=== PATIENT | female | born 1960 | race Caucasian/White ===

== ENCOUNTER 2024-06-10 18:36 | Inpatient (IN) | payer OTHER ==
--- NOTE | 2024-06-10 18:44 | ED ---
Fall HPI - General Stated Complaint: fall Time Seen by Provider: 06/10/24 18:41 Source: RN notes reviewed, old records reviewed Mode of arrival: EMS Limitations: no limitations - History of Present Illness Initial Comments: This is a 63-year-old female presenting by EMS for a fall fall with left-sided flank pain abdominal pain. Patient's fall was mechanical in nature states she had a trip and fall no headache chest pain shortness of breath is complaining of abdominal pain left-sided abdominal pain and flank pain. Patient states she has not seen a doctor in 20 years MD Complaint: fall -: hour(s) When Fall Occurred: 1-3 hours [place] [facility] Fall Witnessed: yes, by family Place Fall Occurred: home Loss of Consciousness: none Prolonged Down Time?: no Symptoms Prior to Fall: none Severity: moderate Severity scale (1-10): 6 Quality: sharp Context: tripped/slipped Associated Symptoms: denies - Related Data Home Medications Medication Instructions Recorded Confirmed Apple Cider Vinegar Gummies 2 tab PO HS 06/10/24 06/10/24 Elderberry Gummies 2 tab PO HS 06/10/24 06/10/24 Allergies Allergy/AdvReac Type Severity Reaction Status Date / Time lorazepam [From Ativan] AdvReac Confusion Verified 06/13/24 22:08 Review of Systems ROS Statement: Those systems with pertinent positive or pertinent negative responses have been documented in the HPI. ROS Other: All systems not noted in ROS Statement are negative. General Exam General appearance: alert, in no apparent distress Head exam: Present: atraumatic, normocephalic, normal inspection Eye exam: Present: normal appearance, PERRL, EOMI. Absent: scleral icterus, conjunctival injection, periorbital swelling ENT exam: Present: normal exam, mucous membranes moist Neck exam: Present: normal inspection. Absent: tenderness, meningismus, lymphadenopathy Respiratory exam: Present: normal lung sounds bilaterally. Absent: respiratory distress, wheezes, rales, rhonchi, stridor Cardiovascular Exam: Present: regular rate, normal rhythm, normal heart sounds. Absent: systolic murmur, diastolic murmur, rubs, gallop, clicks GI/Abdominal exam: Present: soft, normal bowel sounds. Absent: distended, tenderness, guarding, rebound, rigid Extremities exam: Present: normal inspection, full ROM, normal capillary refill. Absent: tenderness, pedal edema, joint swelling, calf tenderness Back exam: Present: normal inspection Neurological exam: Present: alert, oriented X3, CN II-XII intact Psychiatric exam: Present: normal affect, normal mood Skin exam: Present: warm, dry, intact, normal color. Absent: rash Course Vital Signs 06/10/24 06/10/24 06/10/24 18:42 18:58 20:33 Temperature 98.3 F Pulse Rate 101 H 98 Pulse Rate [ 105 H Telesales Supervisor ] Respiratory 16 18 Rate Blood Pressure 215/121 190/79 O2 Sat by Pulse 99 99 Oximetry 06/10/24 06/10/24 06/11/24 22:15 23:00 00:46 Temperature Pulse Rate 90 83 95 Pulse Rate [ Telesales Supervisor ] Respiratory 16 16 18 Rate Blood Pressure 195/97 187/102 118/68 O2 Sat by Pulse 99 97 99 Oximetry 06/11/24 06/11/24 06/11/24 04:29 08:29 11:56 Temperature Pulse Rate 90 95 Pulse Rate [ Telesales Supervisor ] Respiratory 20 20 Rate Blood Pressure 164/79 168/81 164/74 O2 Sat by Pulse 98 97 Oximetry 06/11/24 06/11/24 06/11/24 14:26 16:57 18:28 Temperature 98.2 F Pulse Rate 89 93 98 Pulse Rate [ Telesales Supervisor ] Respiratory 20 19 22 Rate Blood Pressure 176/92 188/95 168/84 O2 Sat by Pulse 99 98 99 Oximetry - Reevaluation(s) Reevaluation #1: 06/10/24 21:31 Medical records reviewed Reevaluation #2: 06/10/24 21:31 Patient's pain is controlled Reevaluation #3: 06/10/24 21:31 Patient informed of results questions answered Reevaluation #4: Was pt. sent in by a medical professional or institution (, PA, JOB SETTER, urgent care, hospital, or long term...) When possible be specific @ -no Did you speak to anyone other than the patient for history (EMS, parent, family, police, friend...)? What history was obtained from this source @ -no Did you review nursing and triage notes (agree or disagree)? Why? @ -agree Are old charts reviewed (outside hosp., previous admission, EMS record, old EKG, old radiological studies, urgent care reports/EKG's, long term records)? Report findings @ -yes Differential Diagnosis (chest pain, altered mental status, abdominal pain women, abdominal pain men, vaginal bleeding, weakness, fever, dyspnea, syncope, headache, dizziness, GI bleed, back pain, seizure, CVA, palpatations, mental health, musculoskeletal)? @ -prior EKG interpreted by me (3pts min.). @ -yes X-rays interpreted by me (1pt min.). @ -yes negative for acute disease CT interpreted by me (1pt min.). @ -US negative for acute disease U/S interpreted by me (1pt. min.). @ -no What testing was considered but not performed or refused? (CT, X-rays, U/S, labs)? Why? @ -none What meds were considered but not given or refused? Why? @ -none Did you discuss the management of the patient with other professionals (professionals i.e. , PA, JOB SETTER, lab, RT, psych nurse, social media assistant, fan runner, teacher, sustainability officer, block and case maker)? Give summary @ -no Was smoking cessation discussed for >3mins.? @ -no Was critical care preformed (if so, how long)? @ -no Were there social determinants of health that impacted care today? How? (Homelessness, low income, unemployed, alcoholism, drug addiction, transportation, low edu. Level, literacy, decrease access to med. care, fpc, rehab)? @ -none Was there de-escalation of care discussed even if they declined (Discuss DNR or withdrawal of care, Hospice)? DNR status @ -no What co-morbidities impacted this encounter? (DM, HTN, Smoking, COPD, CAD, Cancer, CVA, ARF, Chemo, Hep., AIDS, mental health diagnosis, sleep apnea, morbid obesity)? @ -none Was patient admitted / discharged? Hospital course, mention meds given and route, prescriptions, significant lab abnormalities, going to OR and other pertinent info. @ - 63 female to the ER after a fall complaining of left side left flank pain. Patient has no significant traumatic injury noted low magnesium low potassium patient has not seen a doctor in 20 years has new diagnosis of diabetes and severe uncontrolled hypertension with hypertensive urgency Admitted Undiagnosed new problem with uncertain prognosis? @ -no Drug Therapy requiring intensive monitoring for toxicity (Heparin, Nitro, Insulin, Cardizem)? @ -no Were any procedures done? @ -no Diagnosis/symptom? @ -Uncontrolled diabetes new diabetes and hypertension, low magnesium, low potassium, Acute, or Chronic, or Acute on Chronic? @ -Acute Uncomplicated (without systemic symptoms) or Complicated (systemic symptoms)? @ -Complicated Side effects of treatment? @ -no Exacerbation, Progression, or Severe Exacerbation? @ -exacerbation Poses a threat to life or bodily function? How? (Chest pain, USA, HI, pneumonia, PE, COPD, DKA, ARF, appy, cholecystitis, CVA, Diverticulitis, Homicidal, Suicidal, threat to staff... and all critical care pts) @ -yes severe elevated blood pressure Reevaluation #5: Differential Weakness: Hypoglycemia, shock, sepsis, hyponatremia, anemia, infection, HI, ETOH, adverse medicine reaction, overdose, stroke, this is not meant to be an all-inclusive list. - Consultations Consultation #1: Spoke with [facility] who agrees to admit this patient Medical Decision Making - Medical Decision Making 63 female to the ER after a fall complaining of left side left flank pain. Patient has no significant traumatic injury noted low magnesium low potassium patient has not seen a doctor in 20 years has new diagnosis of diabetes and severe uncontrolled hypertension with hypertensive urgency - Lab Data Result diagrams: 06/17/24 06:12 06/17/24 06:12 Lab Results 06/10/24 06/10/24 06/10/24 Range/Units 18:50 20:14 20:14 WBC 10.93 H (4.50-10.00) 10*3/uL RBC 5.58 H (4.10-5.20) 10*6/uL Hgb 15.8 H (12.0-15.0) g/dL Hct 45.5 (37.2-46.3) % MCV 81.5 (80.0-97.0) fL MCH 28.3 (27.0-32.0) pg MCHC 34.7 (32.0-37.0) g/dL Plt Count 309 (140-440) 10*3/uL MPV 10.0 (9.5-12.2) fL Immature Gran % (Auto) 0.3 % Neutrophils % 77.9 % Lymphocytes % 15.2 % Monocytes % 5.3 % Eosinophils % 0.5 % Basophils % 0.8 % Immature Gran # 0.03 (0.00-0.04) 10*3/uL Neutrophils # 8.51 H (1.80-7.70) 10*3/uL Lymphocytes # 1.66 (0.90-5.00) 10*3/uL Monocytes # 0.58 (0.20-1.00) 10*3/uL Eosinophils # 0.06 (0.04-0.35) 10*3/uL Basophils # 0.09 (0.00-0.10) 10*3/uL PT 10.2 (10.0-12.5) sec INR 0.9 (<1.2) APTT 22.1 (22.0-30.0) sec D-Dimer 0.36 (<0.60) mg/L FEU Sodium (137-145) mmol/L Potassium (3.5-5.1) mmol/L Chloride (98-107) mmol/L Carbon Dioxide (22-30) mmol/L Anion Gap mmol/L BUN (7-17) mg/dL Creatinine (0.52-1.04) mg/dL Est GFR (CKD-EPI)AfAm (>60 ml/min/1.73 sqM) Est GFR (CKD-EPI)NonAf (>60 ml/min/1.73 sqM) Glucose (74-99) mg/dL POC Glucose (mg/dL) 412 H (70-110) mg/dL POC Glu Nickel Plant Operator ID [place] Plasma Lactic Acid Daniel (0.7-2.0) mmol/L Calcium (8.4-10.2) mg/dL Phosphorus (2.5-4.5) mg/dL Magnesium (1.6-2.3) mg/dL Total Bilirubin (0.2-1.3) mg/dL AST (14-36) U/L ALT (4-34) U/L Alkaline Phosphatase (38-126) U/L Troponin I (0.000-0.034) ng/mL NT-Pro-B Natriuret Pep pg/mL Total Protein (6.3-8.2) g/dL Albumin (3.5-5.0) g/dL Urine Color Urine Appearance (Clear) Urine pH (5.0-8.0) Ur Specific [place] (1.001-1.035) Urine Protein (Negative) Urine Glucose (UA) (Negative) Urine Ketones (Negative) Urine Blood (Negative) Urine Nitrite (Negative) Urine Bilirubin (Negative) Urine Urobilinogen (<2.0) mg/dL Ur Leukocyte Esterase (Negative) Urine RBC (0-5) /hpf Urine WBC (0-5) /hpf Ur Squamous Epith Cells (0-4) /hpf Urine Bacteria (None) /hpf Urine Mucus (None) /hpf 06/10/24 06/10/24 06/10/24 Range/Units 20:14 20:14 20:14 WBC (4.50-10.00) 10*3/uL RBC (4.10-5.20) 10*6/uL Hgb (12.0-15.0) g/dL Hct (37.2-46.3) % MCV (80.0-97.0) fL MCH (27.0-32.0) pg MCHC (32.0-37.0) g/dL Plt Count (140-440) 10*3/uL MPV (9.5-12.2) fL Immature Gran % (Auto) % Neutrophils % % Lymphocytes % % Monocytes % % Eosinophils % % Basophils % % Immature Gran # (0.00-0.04) 10*3/uL Neutrophils # (1.80-7.70) 10*3/uL Lymphocytes # (0.90-5.00) 10*3/uL Monocytes # (0.20-1.00) 10*3/uL Eosinophils # (0.04-0.35) 10*3/uL Basophils # (0.00-0.10) 10*3/uL PT (10.0-12.5) sec INR (<1.2) APTT (22.0-30.0) sec D-Dimer (<0.60) mg/L FEU Sodium 135 L (137-145) mmol/L Potassium 3.1 L (3.5-5.1) mmol/L Chloride 103 (98-107) mmol/L Carbon Dioxide 23 (22-30) mmol/L Anion Gap 9 mmol/L BUN 18 H (7-17) mg/dL Creatinine 0.42 L (0.52-1.04) mg/dL Est GFR (CKD-EPI)AfAm >90 (>60 ml/min/1.73 sqM) Est GFR (CKD-EPI)NonAf >90 (>60 ml/min/1.73 sqM) Glucose 332 H (74-99) mg/dL POC Glucose (mg/dL) (70-110) mg/dL POC Glu Nickel Plant Operator ID Plasma Lactic Acid Daniel 1.3 (0.7-2.0) mmol/L Calcium 8.0 L (8.4-10.2) mg/dL Phosphorus 3.1 (2.5-4.5) mg/dL Magnesium 1.4 L (1.6-2.3) mg/dL Total Bilirubin 0.7 (0.2-1.3) mg/dL AST 18 (14-36) U/L ALT 15 (4-34) U/L Alkaline Phosphatase 87 (38-126) U/L Troponin I <0.012 (0.000-0.034) ng/mL NT-Pro-B Natriuret Pep 412 pg/mL Total Protein 6.2 L (6.3-8.2) g/dL Albumin 3.4 L (3.5-5.0) g/dL Urine Color Urine Appearance (Clear) Urine pH (5.0-8.0) Ur Specific [place] (1.001-1.035) Urine Protein (Negative) Urine Glucose (UA) (Negative) Urine Ketones (Negative) Urine Blood (Negative) Urine Nitrite (Negative) Urine Bilirubin (Negative) Urine Urobilinogen (<2.0) mg/dL Ur Leukocyte Esterase (Negative) Urine RBC (0-5) /hpf Urine WBC (0-5) /hpf Ur Squamous Epith Cells (0-4) /hpf Urine Bacteria (None) /hpf Urine Mucus (None) /hpf 06/10/24 Range/Units 20:22 WBC (4.50-10.00) 10*3/uL RBC (4.10-5.20) 10*6/uL Hgb (12.0-15.0) g/dL Hct (37.2-46.3) % MCV (80.0-97.0) fL MCH (27.0-32.0) pg MCHC (32.0-37.0) g/dL Plt Count (140-440) 10*3/uL MPV (9.5-12.2) fL Immature Gran % (Auto) % Neutrophils % % Lymphocytes % % Monocytes % % Eosinophils % % Basophils % % Immature Gran # (0.00-0.04) 10*3/uL Neutrophils # (1.80-7.70) 10*3/uL Lymphocytes # (0.90-5.00) 10*3/uL Monocytes # (0.20-1.00) 10*3/uL Eosinophils # (0.04-0.35) 10*3/uL Basophils # (0.00-0.10) 10*3/uL PT (10.0-12.5) sec INR (<1.2) APTT (22.0-30.0) sec D-Dimer (<0.60) mg/L FEU Sodium (137-145) mmol/L Potassium (3.5-5.1) mmol/L Chloride (98-107) mmol/L Carbon Dioxide (22-30) mmol/L Anion Gap mmol/L BUN (7-17) mg/dL Creatinine (0.52-1.04) mg/dL Est GFR (CKD-EPI)AfAm (>60 ml/min/1.73 sqM) Est GFR (CKD-EPI)NonAf (>60 ml/min/1.73 sqM) Glucose (74-99) mg/dL POC Glucose (mg/dL) (70-110) mg/dL POC Glu Nickel Plant Operator ID Plasma Lactic Acid Daniel (0.7-2.0) mmol/L Calcium (8.4-10.2) mg/dL Phosphorus (2.5-4.5) mg/dL Magnesium (1.6-2.3) mg/dL Total Bilirubin (0.2-1.3) mg/dL AST (14-36) U/L ALT (4-34) U/L Alkaline Phosphatase (38-126) U/L Troponin I (0.000-0.034) ng/mL NT-Pro-B Natriuret Pep pg/mL Total Protein (6.3-8.2) g/dL Albumin (3.5-5.0) g/dL Urine Color Colorless Urine Appearance Clear (Clear) Urine pH 5.0 (5.0-8.0) Ur Specific [place] 1.038 H (1.001-1.035) Urine Protein Negative (Negative) Urine Glucose (UA) 4+ H (Negative) Urine Ketones 2+ H (Negative) Urine Blood Negative (Negative) Urine Nitrite Negative (Negative) Urine Bilirubin Negative (Negative) Urine Urobilinogen <2.0 (<2.0) mg/dL Ur Leukocyte Esterase Moderate H (Negative) Urine RBC 6 H (0-5) /hpf Urine WBC 7 H (0-5) /hpf Ur Squamous Epith Cells 2 (0-4) /hpf Urine Bacteria Rare H (None) /hpf Urine Mucus Rare H (None) /hpf - EKG Data -: EKG Interpreted by Me (EKG is sinus 93 NH 186 QRS 81 QTc 450) - Radiology Data Radiology results: report reviewed (X-ray chest x-ray pelvis possible acetabular, CT abdomen pelvis and hip negative for traumatic injury), image reviewed Disposition Clinical Impression: Fall, Abdominal pain, New onset type 2 diabetes mellitus, Hypertension, Hypomagnesemia, Hypokalemia Disposition: ADMITTED IP TO THIS HOSP Condition: Fair Is patient prescribed a controlled substance at d/c from ED?: No Time of Disposition: 21:30
[2024-06-10 18:52] LABS: Glucose,Whole Blood 412 mg/dL (70-110)
--- NOTE | 2024-06-10 20:05 | XR ---
EXAMINATION TYPE: XR chest 2V DATE OF EXAM: 06/10/2024 7:48 PM COMPARISON: None CLINICAL INDICATION: Female, 63 years old with history of Weakness; TECHNIQUE: XR chest 2V Frontal and lateral views of the chest. FINDINGS: Lungs/Pleura: There is no evidence of pleural effusion, focal consolidation, or pneumothorax. Pulmonary vascularity: Unremarkable. Heart/mediastinum: Cardiomediastinal silhouette is unremarkable. Musculoskeletal: No acute osseous pathology. IMPRESSION: No acute cardiopulmonary disease/process. [facility], , 06/10/2024 8:02 PM
--- NOTE | 2024-06-10 20:09 | XR ---
EXAMINATION TYPE: XR Hip LT and AP Pelvis DATE OF EXAM: 06/10/2024 7:48 PM COMPARISON: None CLINICAL INDICATION: Female, 63 years old with history of pain; TECHNIQUE: XR Hip LT and AP Pelvis; hip was examined in the frontal and lateral projections and a AP pelvis. FINDINGS: Possible fracture line to the acetabulum seen on one view only. There is severe joint space narrowing and osteophyte formation of the left hip and mild to moderate osteophyte formation and kiko nt space narrowing of the right hip. Additional fractures definitively visualized. IMPRESSION: 1. There is possible left acetabular fracture seen on view only. Further evaluation with CT recommen ded. 2. Moderate to severe left hip and mild to moderate right hip osteoporosis. [facility], , 06/10/2024 8:06 PM
[2024-06-10 20:23] LABS: Basophils # (A) 0.09 10*3/uL (0.00-0.10); Basophils % (A) 0.8 %; Eosinophils # (A) 0.06 10*3/uL (0.04-0.35); Eosinophils % (A) 0.5 %; HCT 45.5 % (37.2-46.3); HGB 15.8 g/dL (12.0-15.0); Lymphocytes # (A) 1.66 10*3/uL (0.90-5.00); Lymphocytes % (A) 15.2 %; MCH 28.3 pg (27.0-32.0); MCHC 34.7 g/dL (32.0-37.0); MCV 81.5 fL (80.0-97.0); Monocytes # (A) 0.58 10*3/uL (0.20-1.00); Monocytes % (A) 5.3 %; Neutrophils # (A) 8.51 10*3/uL (1.80-7.70); Neutrophils % (A) 77.9 %; Platelet Count 309 10*3/uL (140-440); RBC 5.58 10*6/uL (4.10-5.20); RDW 12.3 % (11.5-14.5); WBC 10.93 10*3/uL (4.50-10.00)
[2024-06-10] MEDS: SODIUM CHLORIDE 0.9% 1,000 ML IV ONE ×2 (20:31→22:25)
[2024-06-10] MEDS: MORPHINE SULFATE 4 MG/ML SYRINGE IV STA (20:35)
[2024-06-10 20:37] LABS: Appearance,Urine Clear (Clear); Bacteria,Urine Rare /hpf; Bilirubin,Urine Negative (Negative); Blood,Urine Negative (Negative); Color,Urine Colorless; Glucose,Urine (UA) 4+ (Negative); Leukocyte Esterase,Urine Moderate (Negative); Mucus,Urine Rare /hpf; Nitrite,Urine Negative (Negative); Protein,Urine Negative (Negative); RBC,Urine 6 /hpf (0-5); Specific Gravity,Urine 1.038 (1.001-1.035); Squamous Epithelial Cell,Urine 2 /hpf (0-4); Urobilinogen,Urine <2.0 mg/dL (<2.0); WBC,Urine 7 /hpf (0-5)
[2024-06-10 20:39] LABS: ALT 15 U/L (4-34); AST 18 U/L (14-36); African American GFR (CKD) >90 (>60 ml/min/1.73 sqM); Albumin 3.4 g/dL (3.5-5.0); Alkaline Phosphatase 87 U/L (38-126); Anion Gap 9 mmol/L; Blood Urea Nitrogen 18 mg/dL (7-17); Carbon Dioxide 23 mmol/L (22-30); Chloride 103 mmol/L (98-107); Glucose 332 mg/dL (74-99); Magnesium 1.4 mg/dL (1.6-2.3); Non-African American GFR(CKD) >90 (>60 ml/min/1.73 sqM); Phosphorus 3.1 mg/dL (2.5-4.5); Potassium 3.1 mmol/L (3.5-5.1); Sodium 135 mmol/L (137-145); Total Bilirubin 0.7 mg/dL (0.2-1.3); Total Protein 6.2 g/dL (6.3-8.2)
[2024-06-10 20:40] LABS: Ketones,Urine 2+ (Negative)
[2024-06-10 20:41] LABS: INR 0.9 (<1.2); Partial Thromboplastin Time 22.1 sec (22.0-30.0); Prothrombin Time 10.2 sec (10.0-12.5)
[2024-06-10 20:47] LABS: NT-Pro-B-Type Natriuretic Pept 412 pg/mL
[2024-06-10] MEDS ORDERED: NALOXONE 0.4 MG/ML 1 ML VIAL IV PRN (21:26)
[2024-06-10] MEDS ORDERED: MORPHINE SULFATE 4 MG/ML SYRINGE IV PRN (21:26)
[2024-06-10] MEDS: POTASSIUM BICARBONATE/CIT AC 20 MEQ TABLET.EFF PO ONE ×2 (22:24→22:38)
[2024-06-10] MEDS: MAGNESIUM OXIDE 400 MG TAB PO STA (22:24)
[2024-06-10] MEDS: LABETALOL 5 MG/ML VIAL MDV IVP STA (22:25)
[2024-06-10] MEDS: SODIUM CHLORIDE 0.9% 500 ML 500 ML IV ONE (22:26)
[2024-06-10] MEDS: MAGNESIUM SULFATE-D5W PMX 1 GM in DEXTROSE/WATER 1 100ML.BAG IVPB ONE (22:26)
[2024-06-10] MEDS: SODIUM CHLORIDE 0.9% 1,000 ML IV SCH (22:26)
[2024-06-10] MEDS: INSULIN REGULAR 100 UNIT/ML VIAL (IV) IV ONE (22:29)
[2024-06-10] MEDS: MAGNESIUM OXIDE 400 MG TAB PO SCH (22:38)
--- NOTE | 2024-06-10 22:42 | CT ---
EXAMINATION TYPE: CT abdomen pelvis w con, CT hip LT w con DATE OF EXAM: 06/10/2024 10:17 PM COMPARISON: Plain films. CLINICAL INDICATION: Female, 63 years old with history of pain; fall, hip pain TECHNIQUE: Axial CT abdomen pelvis w con, CT hip LT w con;Sagittal and coronal reformats were create d on a separate workstation. Contrast used:100 ml mL of Isovue 300 with IV Contrast, (none if empty) Oral contrast used: without Oral Contrast (none if empty) CT DLP: 2616.4 mGycm, Automated exposure control for dose reduction was used. FINDINGS: LOWER CHEST: Heart is mildly enlarged for size. ABDOMEN LIVER: Unremarkable GALLBLADDER AND BILE DUCTS: Unremarkable. PANCREAS: Unremarkable. SPLEEN: Unremarkable. ADRENAL GLANDS: Left adrenal septic millimeter nodule measuring 25 Hounsfield units. No right adrenal nodules. KIDNEYS AND URETERS: No evidence of hydronephrosis or obstructing renal calculus. The ureters are unr emarkable. Nonobstructing right renal metastatic focus. No left renal calculi. No hydronephrosis. PELVIS BLADDER: No evidence for wall thickening or mass given limitations of exam. REPRODUCTIVE: Unremarkable. ABDOMEN & PELVIS STOMACH AND BOWEL: Small hiatal hernia. No evidence of bowel obstruction. Scattered colonic diverticu la. The appendix is normal. PERITONEUM/RETROPERITONEUM: No evidence of pneumoperitoneum or free fluid. VASCULATURE: No evidence of aortic aneurysm. MUSCULOSKELETAL: No acute osseous abnormalities, moderate to severe degeneration changes of the left hip with osteophyte formation and joint space narrowing. No evidence of fracture. Mild to moderate ri ght hip osteoporosis with osteophyte information joint space narrowing. Mild to moderate degeneration changes spine worse at L4-L5. No evidence for spinal fracture. LYMPH NODES: No gross evidence for lymphadenopathy. SOFT TISSUE/ABDOMINAL WALL: Fat-containing umbilical hernia. Diastasis of the rectus abdominis muscle . IMPRESSION: 1. Moderate to severe degeneration changes of the hips. No evidence of fracture. If there remains co ncern for fracture consider MRI. 2. Colonic diverticulosis. 3. Nonobstructing right renal calculus. 4. Mild cardiomegaly. 5. Small hiatal hernia. 6. Indeterminate left adrenal nodule consider further evaluation. Adrenal mass protocol. [facility], , 06/10/2024 10:39 PM
[2024-06-10 23:33] LABS: Glucose,Whole Blood 274 mg/dL (70-110)
[2024-06-11 02:50] LABS: Glucose,Whole Blood 297 mg/dL (70-110)
[2024-06-11 03:38] LABS: Basophils # (A) 0.05 10*3/uL (0.00-0.10); Basophils % (A) 0.5 %; Eosinophils # (A) 0.09 10*3/uL (0.04-0.35); HCT 42.1 % (37.2-46.3); HGB 14.1 g/dL (12.0-15.0); Lymphocytes # (A) 2.04 10*3/uL (0.90-5.00); Lymphocytes % (A) 21.9 %; MCHC 33.5 g/dL (32.0-37.0); MCV 83.7 fL (80.0-97.0); Mean Platelet Volume 10.2 fL (9.5-12.2); Monocytes # (A) 0.58 10*3/uL (0.20-1.00); Monocytes % (A) 6.2 %; Neutrophils # (A) 6.54 10*3/uL (1.80-7.70); Neutrophils % (A) 70.1 %; Platelet Count 310 10*3/uL (140-440); RBC 5.03 10*6/uL (4.10-5.20); RDW 12.5 % (11.5-14.5); WBC 9.33 10*3/uL (4.50-10.00)
[2024-06-11 03:57] LABS: ALT 16 U/L (4-34); AST 17 U/L (14-36); African American GFR (CKD) >90 (>60 ml/min/1.73 sqM); Albumin 3.4 g/dL (3.5-5.0); Alkaline Phosphatase 95 U/L (38-126); Anion Gap 9 mmol/L; Blood Urea Nitrogen 15 mg/dL (7-17); Calcium 8.4 mg/dL (8.4-10.2); Carbon Dioxide 25 mmol/L (22-30); Chloride 99 mmol/L (98-107); Glucose 306 mg/dL (74-99); Magnesium 1.8 mg/dL (1.6-2.3); Non-African American GFR(CKD) >90 (>60 ml/min/1.73 sqM); Phosphorus 2.3 mg/dL (2.5-4.5); Sodium 133 mmol/L (137-145); Total Bilirubin 0.4 mg/dL (0.2-1.3); Total Protein 6.2 g/dL (6.3-8.2)
[2024-06-11] MEDS ORDERED: DEXTROSE 50% SYRINGE 50 ML IVP PRN ×2 (04:01)
[2024-06-11 04:33] LABS: Glucose,Whole Blood 324 mg/dL (70-110)
[2024-06-11] MEDS: INSULIN LISPRO (HumaLOG) 100 UNIT/ML 10 mL VL SQ SCH (04:38)
[2024-06-11 06:02] LABS: Glucose,Whole Blood 323 mg/dL (70-110)
[2024-06-11 08:32] LABS: Glucose,Whole Blood 233 mg/dL (70-110)
[2024-06-11 12:15] LABS: Glucose,Whole Blood 358 mg/dL (70-110)
[2024-06-11] MEDS ORDERED: PIOGLITAZONE 30 MG TAB PO SCH (12:45)
--- NOTE | 2024-06-11 12:51 | P.HPIM ---
History of Present Illness 63-year-old female came in after a fall patient had a mechanical fall patient underwent workup with CT abdomen pelvis hip CT pelvic and hip x-ray all of which did not show any significant abdominal patient had abdominal pain when she came in patient presently denies any abdominal pain patient is also found to have highly elevated blood sugars. Patient is not a known diabetic. Patient blood pressure is also elevated. 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 Nonobstructing renal calculi, colonic diverticulosis. And there is a incidental finding of left adrenal nodule. REVIEW OF SYSTEMS: All other systems are negative except those mentioned in the HPI PHYSICAL EXAMINATION: GENERAL: The patient is alert and oriented x3, not in any acute distress. Well developed, well nourished. HEENT: Pupils are round and equally reacting to light. EOMI. No scleral icterus. No conjunctival pallor. Normocephalic, atraumatic. No pharyngeal erythema. No thyromegaly. CARDIOVASCULAR: S1 and S2 present. No murmurs, rubs, or gallops. PULMONARY: Chest is clear to auscultation, no wheezing or crackles. ABDOMEN: Soft, nontender, nondistended, normoactive bowel sounds. No palpable organomegaly. MUSCULOSKELETAL: No joint swelling or deformity. EXTREMITIES: No cyanosis, clubbing, or pedal edema. NEUROLOGICAL: Gross neurological examination did not reveal any focal deficits. SKIN: No rashes. Assessment and plan -Fall secondary to generalized weakness patient does have peripheral neuropathy from probably from diabetes mellitus which is contributing to her weakness and falls. Physical therapy Occupational Therapy evaluation. - Type 2 diabetes mellitus new onset patient will be started on sliding scale insulin along with metformin and linagliptin. Will obtain hemoglobin A1c - Hypertension new onset essential hypertension patient will be started on losartan 25 mg DVT prophylaxis: Early ambulation Past Medical History Additional Past Medical History / Comment(s): kidney stones Past Surgical History: Back Surgery Additional Past Surgical History / Comment(s): ruptured disc Past Psychological History: No Psychological Hx Reported Smoking Status: Current every day smoker Past Alcohol Use History: None Reported Past Drug Use History: None Reported Medications and Allergies Home Medications Medication Instructions Recorded Confirmed Type Apple Cider Vinegar Gummies 2 tab PO HS 06/10/24 06/10/24 History Elderberry Gummies 2 tab PO HS 06/10/24 06/10/24 History Allergies Allergy/AdvReac Type Severity Reaction Status Date / Time No Known Allergies Allergy Verified 06/10/24 18:47 Physical Exam Vitals: Vital Signs Temp Pulse Pulse Resp BP Pulse Ox 06/11/24 11:56 95 20 164/74 97 06/11/24 08:29 90 20 168/81 98 06/11/24 04:29 164/79 06/11/24 00:46 95 18 118/68 99 06/10/24 23:00 83 16 187/102 97 06/10/24 22:15 90 16 195/97 99 06/10/24 20:33 98 18 190/79 99 06/10/24 18:58 105 H 06/10/24 18:42 98.3 F 101 H 16 215/121 99 Intake and Output 06/10/24 06/11/24 06/11/24 22:59 06:59 14:59 Output Total 800 Balance -800 Output: Urine 800 Other: Weight 81.647 kg Results CBC & Chem 7: 06/11/24 03:07 06/11/24 03:07 Labs: Abnormal Lab Results - Last 24 Hours (Table) 06/10/24 06/10/24 06/10/24 Range/Units 18:50 20:14 20:14 WBC 10.93 H (4.50-10.00) 10*3/uL RBC 5.58 H (4.10-5.20) 10*6/uL Hgb 15.8 H (12.0-15.0) g/dL Neutrophils # 8.51 H (1.80-7.70) 10*3/uL Sodium 135 L (137-145) mmol/L Potassium 3.1 L (3.5-5.1) mmol/L BUN 18 H (7-17) mg/dL Creatinine 0.42 L (0.52-1.04) mg/dL Glucose 332 H (74-99) mg/dL POC Glucose (mg/dL) 412 H (70-110) mg/dL Hemoglobin A1c (<=6.0) % Calcium 8.0 L (8.4-10.2) mg/dL Phosphorus (2.5-4.5) mg/dL Magnesium 1.4 L (1.6-2.3) mg/dL Total Protein 6.2 L (6.3-8.2) g/dL Albumin 3.4 L (3.5-5.0) g/dL Ur Specific [place] (1.001-1.035) Urine Glucose (UA) (Negative) Urine Ketones (Negative) Ur Leukocyte Esterase (Negative) Urine RBC (0-5) /hpf Urine WBC (0-5) /hpf Urine Bacteria (None) /hpf Urine Mucus (None) /hpf 06/10/24 06/10/24 06/11/24 Range/Units 20:22 23:30 02:48 WBC (4.50-10.00) 10*3/uL RBC (4.10-5.20) 10*6/uL Hgb (12.0-15.0) g/dL Neutrophils # (1.80-7.70) 10*3/uL Sodium (137-145) mmol/L Potassium (3.5-5.1) mmol/L BUN (7-17) mg/dL Creatinine (0.52-1.04) mg/dL Glucose (74-99) mg/dL POC Glucose (mg/dL) 274 H 297 H (70-110) mg/dL Hemoglobin A1c (<=6.0) % Calcium (8.4-10.2) mg/dL Phosphorus (2.5-4.5) mg/dL Magnesium (1.6-2.3) mg/dL Total Protein (6.3-8.2) g/dL Albumin (3.5-5.0) g/dL Ur Specific [place] 1.038 H (1.001-1.035) Urine Glucose (UA) 4+ H (Negative) Urine Ketones 2+ H (Negative) Ur Leukocyte Esterase Moderate H (Negative) Urine RBC 6 H (0-5) /hpf Urine WBC 7 H (0-5) /hpf Urine Bacteria Rare H (None) /hpf Urine Mucus Rare H (None) /hpf 06/11/24 06/11/24 06/11/24 Range/Units 03:07 03:07 04:31 WBC (4.50-10.00) 10*3/uL RBC (4.10-5.20) 10*6/uL Hgb (12.0-15.0) g/dL Neutrophils # (1.80-7.70) 10*3/uL Sodium 133 L (137-145) mmol/L Potassium (3.5-5.1) mmol/L BUN (7-17) mg/dL Creatinine 0.42 L (0.52-1.04) mg/dL Glucose 306 H (74-99) mg/dL POC Glucose (mg/dL) 324 H (70-110) mg/dL Hemoglobin A1c 12.5 H (<=6.0) % Calcium (8.4-10.2) mg/dL Phosphorus 2.3 L (2.5-4.5) mg/dL Magnesium (1.6-2.3) mg/dL Total Protein 6.2 L (6.3-8.2) g/dL Albumin 3.4 L (3.5-5.0) g/dL Ur Specific [place] (1.001-1.035) Urine Glucose (UA) (Negative) Urine Ketones (Negative) Ur Leukocyte Esterase (Negative) Urine RBC (0-5) /hpf Urine WBC (0-5) /hpf Urine Bacteria (None) /hpf Urine Mucus (None) /hpf 06/11/24 06/11/24 06/11/24 Range/Units 06:01 08:30 12:11 WBC (4.50-10.00) 10*3/uL RBC (4.10-5.20) 10*6/uL Hgb (12.0-15.0) g/dL Neutrophils # (1.80-7.70) 10*3/uL Sodium (137-145) mmol/L Potassium (3.5-5.1) mmol/L BUN (7-17) mg/dL Creatinine (0.52-1.04) mg/dL Glucose (74-99) mg/dL POC Glucose (mg/dL) 323 H 233 H 358 H (70-110) mg/dL Hemoglobin A1c (<=6.0) % Calcium (8.4-10.2) mg/dL Phosphorus (2.5-4.5) mg/dL Magnesium (1.6-2.3) mg/dL Total Protein (6.3-8.2) g/dL Albumin (3.5-5.0) g/dL Ur Specific [place] (1.001-1.035) Urine Glucose (UA) (Negative) Urine Ketones (Negative) Ur Leukocyte Esterase (Negative) Urine RBC (0-5) /hpf Urine WBC (0-5) /hpf Urine Bacteria (None) /hpf Urine Mucus (None) /hpf
[2024-06-11] MEDS: LINAGLIPTIN 5 MG TABLET PO SCH (14:26)
[2024-06-11] MEDS: LOSARTAN 25 MG TAB PO SCH (14:27)
[2024-06-11 16:49] LABS: Glucose,Whole Blood 235 mg/dL (70-110)
[2024-06-11] MEDS: metFORMIN 500 MG TAB PO SCH (16:55)
[2024-06-11] MEDS: ACETAMINOPHEN TAB 325 MG TAB PO PRN (19:57)
[2024-06-11 20:06] LABS: Glucose,Whole Blood 309 mg/dL (70-110)
[2024-06-11] MEDS: ONDANSETRON 4 MG/2 ML VIAL IVP PRN (21:02)
[2024-06-12 06:07] LABS: Glucose,Whole Blood 277 mg/dL (70-110)
[2024-06-12 07:54] LABS: HCT 42.5 % (37.2-46.3); MCH 28.2 pg (27.0-32.0); MCHC 32.9 g/dL (32.0-37.0); MCV 85.5 fL (80.0-97.0); Mean Platelet Volume 9.9 fL (9.5-12.2); Platelet Count 290 10*3/uL (140-440); RBC 4.97 10*6/uL (4.10-5.20); RDW 12.4 % (11.5-14.5); WBC 8.56 10*3/uL (4.50-10.00)
[2024-06-12 08:16] LABS: African American GFR (CKD) >90 (>60 ml/min/1.73 sqM); Anion Gap 5 mmol/L; Blood Urea Nitrogen 13 mg/dL (7-17); Calcium 8.5 mg/dL (8.4-10.2); Carbon Dioxide 29 mmol/L (22-30); Chloride 101 mmol/L (98-107); Glucose 288 mg/dL (74-99); Non-African American GFR(CKD) >90 (>60 ml/min/1.73 sqM); Sodium 135 mmol/L (137-145)
[2024-06-12 11:22] LABS: Glucose,Whole Blood 363 mg/dL (70-110)
[2024-06-12 12:06] VITALS: BMI 34.7
[2024-06-12] MEDS: LOSARTAN 25 MG TAB PO STA (13:20)
--- NOTE | 2024-06-12 13:24 | CT ---
EXAMINATION TYPE: CT brain wo con DATE OF EXAM: 06/12/2024 COMPARISON: None CLINICAL INDICATION: Female, 63 years old with history of CVA; PHH, cva CT DLP: 1171.4 mGycm Automated exposure control for dose reduction was used. Findings: The ventricles, basal cisterns and sulci over the convexities are within normal limits for the patien t's age. There is no mass effect or shift of midline structures. There is mild decreased density in the periventricular white matter consistent with chronic ischemic white matter demyelination. There is a moderate remote lacunar infarct in the left quinn radiata. The posterior fossa including the brainstem, fourth ventricle and cerebellar pontine angles appear no rmal. Intraorbital contents appear normal and symmetric. Visualized paranasal sinuses and mastoid air cells are well aerated. The calvarium is intact. IMPRESSION: 1. No acute bleed or mass effect. 2. Mild senescent changes. 3. Remote lacunar infarct in the left quinn radiata.. [facility], , 06/12/2024 1:22 PM
--- NOTE | 2024-06-12 15:01 | P.PN ---
Subjective Progress Note Date: 06/12/24 63-year-old female came in after a fall patient had a mechanical fall patient underwent workup with CT abdomen pelvis hip CT pelvic and hip x-ray all of which did not show any significant abdominal patient had abdominal pain when she came in patient presently denies any abdominal pain patient is also found to have highly elevated blood sugars. Patient is not a known diabetic. Patient blood pressure is also elevated. 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 Nonobstructing renal calculi, colonic diverticulosis. And there is a incidental finding of left adrenal nodule. 06/12/2024 Patient is evaluated today in follow-up in the medical floor. There is concern for stroke as patient is displaying weakness more on her right side. Cognitively she appears to be altered. Family member at the bedside states that she has not been in to see a medical doctor for quite some time. States that she is likely been a diabetic with hypertension for a while but just has been undiagnosed. Her blood pressure remains elevated and losartan was increased up to 100 mg daily. Her blood glucose in the 300s. Brain CT reveals remote lacunar infarct in the left quinn radiata. Review of Systems Constitutional: Denied any fatigue denied any fever. Cardio vascular: denied any chest pain, palpitations Gastrointestinal: denied any nausea, vomiting, diarrhea Pulmonary: Denied any shortness of breath cough Neurologic denied any new focal deficits Reports swallowing difficulties All inpatient medications were reviewed and appropriate changes in these medications as dictated in the interval history and assessment and plan. PHYSICAL EXAMINATION: GENERAL: The patient is alert and oriented x3, not in any acute distress. Well developed, well nourished. HEENT: Pupils are round and equally reacting to light. EOMI. No scleral icterus. No conjunctival pallor. Normocephalic, atraumatic. No pharyngeal erythema. No thyromegaly. CARDIOVASCULAR: S1 and S2 present. No murmurs, rubs, or gallops. PULMONARY: Chest is clear to auscultation, no wheezing or crackles. ABDOMEN: Soft, nontender, nondistended, normoactive bowel sounds. No palpable organomegaly. MUSCULOSKELETAL: No joint swelling or deformity. EXTREMITIES: No cyanosis, clubbing, or pedal edema. NEUROLOGICAL: Gross neurological examination did not reveal any focal deficits. Right sided weakness. SKIN: No rashes. Assessment and plan -Fall secondary to generalized weakness patient does have peripheral neuropathy -Right sided weakness concern for acute ischemic stroke -Type 2 diabetes mellitus new onset; hgb a1c 12.3 - Hypertension new onset essential hypertension; uncontrolled - Diabetic neuropathy - Chronic nicotine use GI prophylaxis DVT prophylaxis: Subcu heparin Full Code Plan Check AM lipid panel TSH/T4 ordered Brain CT reviewed Neurology consultation PT/OT Speech therapy consultation Increase losartan to 100 mg daily Check echocardiogram Add lantus at HS Continue accuchecks ACHS; sliding scale insulin and scheduled meal time insulin. The impression and plan of care has been dictated by Dai Knight, Nurse Practitioner as directed. Dr. Lai MD I have performed a history and physical examination and medical decision making of this patient, discussed the same with the dictator, and agree with the dictators assessment and plan as written, documented as a scribe. Based on total visit time, I have performed more than 50% of this visit. Objective - Vital Signs Vital signs: Vital Signs Temp 97.4 F L 06/12/24 08:00 Pulse 95 06/12/24 11:20 Resp 18 06/12/24 11:20 BP 189/105 06/12/24 11:20 Pulse Ox 99 06/12/24 11:20 FiO2 Intake & Output 06/11/24 06/12/24 06/12/24 18:59 06:59 18:59 Intake Total 360 Output Total 800 1450 Balance -800 -1090 Weight 100.5 kg 100.5 kg Intake: Oral 360 Output: Urine 800 1450 Other: Voiding Method External Catheter # Voids 1 - Labs CBC & Chem 7: 06/12/24 07:04 06/12/24 07:04 Labs: Abnormal Lab Results - Last 24 Hours (Table) 06/11/24 06/11/24 06/12/24 Range/Units 16:47 20:05 06:05 Sodium (137-145) mmol/L Glucose (74-99) mg/dL POC Glucose (mg/dL) 235 H 309 H 277 H (70-110) mg/dL 06/12/24 06/12/24 Range/Units 07:04 11:19 Sodium 135 L (137-145) mmol/L Glucose 288 H (74-99) mg/dL POC Glucose (mg/dL) 363 H (70-110) mg/dL Assessment and Plan Time with Patient: Less than 30
[2024-06-12] MEDS: INSULIN GLARGINE (LANTUS) 100 UNIT/ML SYR SQ SCH ×2 (15:05→22:34)
[2024-06-12 16:11] LABS: Glucose,Whole Blood 205 mg/dL (70-110)
[2024-06-12] MEDS: INSULIN LISPRO (HumaLOG) 100 UNIT/ML 10 mL VL SQ SCH (17:44)
[2024-06-12] MEDS: ASPIRIN 81 MG PO SCH (17:44)
[2024-06-12 20:07] LABS: Glucose,Whole Blood 281 mg/dL (70-110)
[2024-06-12] MEDS: FAMOTIDINE 20 MG TAB PO SCH (22:33)
[2024-06-12] MEDS: ATORVASTATIN 40 MG TAB PO SCH (22:33)
[2024-06-12] MEDS: HEPARIN SODIUM,PORCINE 5,000 UNIT/ML 1 ML VIAL SQ SCH (22:34)
[2024-06-12] MEDS: CLOPIDOGREL 75 MG TAB PO STA (22:34)
[2024-06-12] MEDS: ASPIRIN 81 MG PO STA (22:39)
--- NOTE | 2024-06-12 22:40 | CT ---
EXAMINATION TYPE: CT angio head neck DATE OF EXAM: 06/12/2024 10:15 PM COMPARISON: 06/12/2024. CLINICAL INDICATION: Female, 63 years old with history of Acute stroke; PHH, Infarct found on prior b rain done earlier today. TECHNIQUE: Axially acquired helical CT angiogram of the head and neck was obtained with contrast. Axi al images are supplemented with 3D reconstructions and MIP images which were post-processed at an in dependent workstation. NASCET criteria used. Contrast used:65ml mL of Isovue 370 with IV Contrast, Oral contrast used: None. CT DLP: 603 mGycm, Automated exposure control for dose reduction was used. FINDINGS: CTA HEAD: No evidence of acute intracranial hemorrhage, mass effect, or midline shift. The ventricles, sulci, a nd cisterns are unremarkable. The mooney-white matter loss of differentiation in the left frontal lobe as seen on CT same day.e Vertebral arteries: The vertebral arteries are patent. Vertebral artery dominance: Codominant Basilar artery: The basilar artery is intact. The basilar artery bifurcation is normal. Internal Carotid arteries: The cervical, petrous, cavernous and supraclinoid segments are normal. DRE: Patent with no evidence of aneurysm. ACOM: Present without evidence of aneurysm. MCA: Patent with no evidence of aneurysm. ANTIQUER: Patent with no evidence of aneurysm. PCOM: Hypoplastic bilaterally. Dural sinuses: Patent. CTA NECK: Right Carotid System: The common carotid artery and external carotid artery are patent. The carotid bifurcation demonstrate s no evidence of hemodynamically significant stenosis. The remaining portions of the internal carotid artery demonstrate normal size without significant narrowing. Left Carotid System: The common carotid artery and external carotid artery are patent. The carotid bifurcation demonstrate s no evidence of hemodynamically significant stenosis. The remaining portions of the internal carotid artery demonstrate normal size without significant narrowing. Vertebral arteries are patent without evidence hemodynamically significant stenosis. There is a three-vessel aortic arch. The origins of the great vessels are patent. No evidence of hemo dynamically significant stenosis. Upper thorax: Centrilobular emphysema changes. Bilateral thyroid gland nodules measuring up to 5 mm a nd 9 mm on the left. IMPRESSION: 1. Left frontal lobe area of suspected acute ischemia seen on 06/12/2024 is redemonstrated. 2. No evidence of dissection of the cervical internal carotid arteries or vertebral arteries. 3. No any evidence of significant stenosis at the carotid bifurcations. 4. No evidence of intracranial high-grade stenosis or intracranial aneurysm. [facility], , 06/12/2024 10:37 PM
[2024-06-13 06:30] LABS: Glucose,Whole Blood 198 mg/dL (70-110)
--- NOTE | 2024-06-13 07:29 | P.CNNES ---
History of Present Illness Consult date: 06/12/24 Requesting physician: Alba Hoyt Reason for Consult: Possible CVA History of Present Illness: Patient is a 63-year-old left handed female, came to the hospital by ambulance on 06/10/2024 at 6:36 PM for increased weakness on the right side. Patient's son and daughter present by the bedside, and they also provided with a history. Patient apparently went to the kitchen, and slammed down against the wall and slid down. She did not pass out, did not hit herself. Therefore they called the ambulance. Family further mentions that patient has weakness of the right leg for couple months, and family attributed it to her history of previous ankle surgery long time ago. However the right-sided weakness has got worse particularly in the last 2 weeks. Patient's son is noticing that she is struggling to get in and out of the car with the right leg. Patient still walks around in the home, but outside she hangs onto the grocery cart. She has been having more difficulty walking long distance. However in the last 2 weeks she is requiring more and more of support. Patient has history of ankle fracture as a child when she missed a step. She does have chronic issues with the ankles. Lately patient's son has noticed that she is having trouble with chewing and swallowing. She has decreased dexterity of the right side. Patient's family believes that she is even getting worse on a daily basis. Family has noticed slight right-sided facial droop and slurring as well. He states that she usual ly speaks slightly more crisp than she is doing now. While working with the PT, she was noticed to have weakness of the right side which prompted this neurology consultation and CT head. Patient is also complaining of increasing left leg pain going down to the knee since the fall. As per EMS flowsheet, when they arrived at the location for a fall. When EMS arrived, patient was laying supine on the floor. Per patient, she had hit her hand on her microwave door and had fallen. She did not hit her head. Patient was alert and orient x 4, answering all questions appropriately. Patient's vit als at the scene was blood pressure 126/87, pulse rate 104, respiration 17, saturation 96%. Blood test shows WBC 10.93 hemoglobin 15.8, platelets are normal. PT PTT normal, sodium 135 potassium 3.1, renal functions are normal, hepatic panel normal troponin negative. UA shows moderate leukocyte Estrace. TSH is normal 1.710. Chest x-ray showed no acute process. Hip x-ray showed possible left acetabular fracture. Moderate to severe left hip and mild to moderate right hip osteoporosis. CT of abdomen pelvis showed moderate to severe degeneration changes of the hips. No evidence of fracture. If there remains concern for fracture, consider MRI. Mild cardiomegaly. Indeterminate left adrenal nodule, consider further evaluation. Adrenal mass protocol. We will defer this later abnormality to IM. Patient had a CT scan of head, which revealed no acute blood or mass effect. Mild senescent changes. Remote lacunar infarct in the left quinn radiator. I personally reviewed CT head, and appears there is presence of watershed ischemia between the left DRE/MCA territory, which appears somewhat subacute in nature. This is besides the presence of old lacunar infarct in the left quinn radiator. Patient has been a light smoker, smokes 1 pack lasting 2 weeks, but has been smoking for 40 years. Denies any alcohol use, or marijuana. She does vape nicotine as well. Patient has not seen doctor for "20 years" as per family. Patient has history of 2 back surgeries in the past and does have chronic lower back pain. Patient's home medications include apple cider vinegar and elderb erry Gummies. Does not take antiplatelet medications. Review of Systems All pertinent positive and negative review of systems mentioned in the HPI. Otherwise unremarkable. Past Medical History Additional Past Medical History / Comment(s): kidney stones History of Any Multi-Drug Resistant Organisms: None Reported Past Surgical History: Back Surgery, Section Additional Past Surgical History / Comment(s): ruptured disc Past Anesthesia/Blood Transfusion Reactions: No Reported Reaction Past Psychological History: No Psychological Hx Reported Smoking Status: Current every day smoker Past Alcohol Use History: None Reported Past Drug Use History: None Reported Medications and Allergies Home Medications Medication Instructions Recorded Confirmed Type Apple Cider Vinegar Gummies 2 tab PO HS 06/10/24 06/10/24 History Elderberry Gummies 2 tab PO HS 06/10/24 06/10/24 History Allergies Allergy/AdvReac Type Severity Reaction Status Date / Time No Known Allergies Allergy Verified 06/10/24 18:47 Physical Examination - Vital Signs Vital Signs: Vital Signs Temp Pulse Pulse Resp BP BP Pulse Ox 06/12/24 16:00 90 18 175/86 99 06/12/24 11:20 95 18 189/105 99 06/12/24 08:00 97.4 F L 96 18 161/84 97 06/12/24 04:13 94 18 175/91 98 06/11/24 23:36 91 18 174/83 97 06/11/24 19:46 98.6 F 87 17 150/76 98 06/11/24 18:28 98.2 F 98 22 168/84 99 Intake and Output 06/12/24 06/12/24 06/12/24 06:59 14:59 22:59 Intake Total 360 Output Total 1450 Balance -1090 Intake: Oral 360 Output: Urine 1450 Other: Voiding Method External Catheter # Voids 1 Weight 100.5 kg 100.5 kg Patient is an elderly female, in no acute distress. Patient is laying slightly towards her left side, with pillows propped under her right side of her body. Patient is alert awake oriented to time place and person. Speech and language functions are normal. Patient can name and repeat very well. No aphasia or dysarthria. Attention, concentration and fund of knowledge is adequate. On cranial nerve examination, pupils are equal, round and reacting to light, visual gardner are full on confrontation, with no neglect on double simultaneous stimulation. Extraocular muscles are intact with no nystagmus. Face is symmetric, tongue protrudes to the midline. Palatal elevation and sensation normal, hearing and shoulder shrug normal, facial sensation normal. Patient has poor dentition. On muscle strength testing, there is no pronator drift. The strength is (right/left) deltoid 4 4-/5, biceps 4+/5, triceps 5/5, accessibility lift technician 5-/5. In the lower limbs hip flexion 3/5, ankle dorsiflexion 3/5. Deep tendon reflexes are symmetric 1+ at the biceps, 1+ brachioradialis, diminished in the lower limbs and plantars are possible upgoing bilaterally. Sensory to touch is equal with no neglect on double simultaneous stimulation. Cerebellar function showed no ataxia for [id number] testing. No dysdiado chokinesia. No ataxia for [id number] testing with the left leg, cannot perform with the right leg. Tone and bulk of muscles normal. Gait deferred.. On general examination, there is no carotid bruit or murmur, S1-S2 audible. Chest is clear on consultation. Abdomen is soft nontender. No organomegaly, bowel sounds present. Peripheral pulses are present. No peripheral edema. Results - Laboratory Findings CBC and BMP: 06/12/24 07:04 06/12/24 07:04 Abnormal Lab Findings: Abnormal Labs 06/10/24 06/10/24 06/10/24 18:50 20:14 20:14 WBC 10.93 H RBC 5.58 H Hgb 15.8 H Neutrophils # 8.51 H Sodium 135 L Potassium 3.1 L BUN 18 H Creatinine 0.42 L Glucose 332 H POC Glucose (mg/dL) 412 H Hemoglobin A1c Calcium 8.0 L Phosphorus Magnesium 1.4 L Total Protein 6.2 L Albumin 3.4 L Ur Specific [place] Urine Glucose (UA) Urine Ketones Ur Leukocyte Esterase Urine RBC Urine WBC Urine Bacteria Urine Mucus 06/10/24 06/10/24 06/11/24 20:22 23:30 02:48 WBC RBC Hgb Neutrophils # Sodium Potassium BUN Creatinine Glucose POC Glucose (mg/dL) 274 H 297 H Hemoglobin A1c Calcium Phosphorus Magnesium Total Protein Albumin Ur Specific [place] 1.038 H Urine Glucose (UA) 4+ H Urine Ketones 2+ H Ur Leukocyte Esterase Moderate H Urine RBC 6 H Urine WBC 7 H Urine Bacteria Rare H Urine Mucus Rare H 06/11/24 06/11/24 06/11/24 03:07 03:07 04:31 WBC RBC Hgb Neutrophils # Sodium 133 L Potassium BUN Creatinine 0.42 L Glucose 306 H POC Glucose (mg/dL) 324 H Hemoglobin A1c 12.5 H Calcium Phosphorus 2.3 L Magnesium Total Protein 6.2 L Albumin 3.4 L Ur Specific [place] Urine Glucose (UA) Urine Ketones Ur Leukocyte Esterase Urine RBC Urine WBC Urine Bacteria Urine Mucus 06/11/24 06/11/24 06/11/24 06:01 08:30 12:11 WBC RBC Hgb Neutrophils # Sodium Potassium BUN Creatinine Glucose POC Glucose (mg/dL) 323 H 233 H 358 H Hemoglobin A1c Calcium Phosphorus Magnesium Total Protein Albumin Ur Specific [place] Urine Glucose (UA) Urine Ketones Ur Leukocyte Esterase Urine RBC Urine WBC Urine Bacteria Urine Mucus 06/11/24 06/11/24 06/12/24 16:47 20:05 06:05 WBC RBC Hgb Neutrophils # Sodium Potassium BUN Creatinine Glucose POC Glucose (mg/dL) 235 H 309 H 277 H Hemoglobin A1c Calcium Phosphorus Magnesium Total Protein Albumin Ur Specific [place] Urine Glucose (UA) Urine Ketones Ur Leukocyte Esterase Urine RBC Urine WBC Urine Bacteria Urine Mucus 06/12/24 06/12/24 06/12/24 07:04 11:19 16:05 WBC RBC Hgb Neutrophils # Sodium 135 L Potassium BUN Creatinine Glucose 288 H POC Glucose (mg/dL) 363 H 205 H Hemoglobin A1c Calcium Phosphorus Magnesium Total Protein Albumin Ur Specific [place] Urine Glucose (UA) Urine Ketones Ur Leukocyte Esterase Urine RBC Urine WBC Urine Bacteria Urine Mucus Assessment and Plan Assessment: * 63-year-old female, with right leg weakness going on for weeks to months, seems to have got worse in the last couple weeks. Also has developed decreased dexterity and some weakness of the right arm. CT head revealed evidence of old left basal ganglial stroke (probable cause of "chronic" right leg weakness of few weeks to few months duration), and on my review also appears to have some possible subacute watershed type of ischemia between the left MCA/DRE territory (cause of recent worsening). * New onset diabetes * Hypertension * Chronic back pain Plan: * Patient will undergo workup for acute/subacute CVA. * MRI of the brain without contrast, evaluate for acute CVA * 2-D echo with bubble study to rule out PFO * Stat CTA of head and neck was done. It revealed left frontal lobe area of suspected acute ischemia seen on 06/12/2024 is redemonstrated. No evidence of dissection of the cervical internal carotid arteries or vertebral arteries. No evidence of significant stenosis at the carotid bifurcations. No evidence of intracranial high-grade stenosis or intracranial aneurysm. * Fasting a.m. lipid panel * Hemoglobin A1c 12.5, consistent with new onset diabetes. Optimize control of diabetes to target A1c <7.0 * B12, folate * Permissive hypertension for next 24-48 hours * Patient was not taking any antiplatelet medication at home. Patient's family believes that she is getting worse. Patient will be loaded with aspirin 324 mg, and Plavix 300 mg x 1 dose. She will be maintained on aspirin 81 mg and Plavix 75 mg for now, pending above workup. * Start Pepcid 20 mg twice daily. * Neuro checks every 2 hours Telemetry monitoring rule out any arrhythmia * PT, OT, speech therapy * DVT prophylaxis: Heparin 5000 units subcu every 12 hours * Neurology will continue to follow. Thank you for the consult. Time with Patient: Greater than 30
[2024-06-13 08:28] LABS: African American GFR (CKD) >90 (>60 ml/min/1.73 sqM); Anion Gap 5 mmol/L; Blood Urea Nitrogen 10 mg/dL (7-17); Calcium 8.6 mg/dL (8.4-10.2); Carbon Dioxide 26 mmol/L (22-30); Chloride 104 mmol/L (98-107); Glucose 226 mg/dL (74-99); Non-African American GFR(CKD) >90 (>60 ml/min/1.73 sqM); Potassium 3.8 mmol/L (3.5-5.1); Sodium 135 mmol/L (137-145)
[2024-06-13] MEDS: LOSARTAN 50 MG TAB PO SCH (10:03)
[2024-06-13] MEDS: LORazepam 1 MG/0.5 ML VIAL IV ONE (10:41)
--- NOTE | 2024-06-13 11:43 | MR ---
EXAMINATION TYPE: MR brain wo con DATE OF EXAM: 06/13/2024 11:34 AM COMPARISON: CT brain 06/12/2024 CLINICAL INDICATION: Female, 63 years old with history of CVA, CVA TECHNIQUE: Multi planar multi sequence imaging of the brain. FINDINGS: The ventricles, basal cisterns and sulci overlying the cerebral convexities are mildly enlarged. There is evidence of mild periventricular white matter ischemic demyelination. Remote deep white matter insults are also noted. Multifocal globular increased signal on diffusion-weighted imaging involving the left frontal lobe co nsistent with acute CVA medially within the anterior cerebral artery territory. Tiny focus seen withi n the splenium of the corpus callosum. Additional tiny focus posterior right temporal lobe. No eviden ce for hemorrhagic transformation. There is no evidence for midline shift or mass effect. Acute intracranial hemorrhage or extra-axial collection is not evident. The paranasal sinuses and mastoid air cells are well-aerated. IMPRESSION: Multifocal globular increased signal on diffusion-weighted imaging involving the left frontal lobe co nsistent with acute CVA medially within the anterior cerebral artery territory. Tiny focus seen withi n the splenium of the corpus callosum. Additional tiny focus posterior right temporal lobe. No eviden ce for hemorrhagic transformation. [facility], , 06/13/2024 11:41 AM
[2024-06-13 11:46] LABS: Glucose,Whole Blood 291 mg/dL (70-110)
[2024-06-13 12:21] LABS: ABG Base Excess 2.2 mmol/L; ABG HCO3 27 mmol/L (21-25); ABG Oxygen Saturation 98.5 % (94-97); ABG PCO2 43 mmHg (35-45); ABG PH 7.41 (7.35-7.45); ABG PO2 101 mmHg (83-108); ABG TCO2 29 mmol/L (19-24); Allen Test Performed? Yes
--- NOTE | 2024-06-13 13:37 | CA ---
Transthoracic Echo Report Name: Liliya Crystal Age: 63 Gender: F : 1960 Exam Date: 06/13/2024 09:00 Exam Location: [facility] Ht (in): 67 Wt (lb): 221 Ordering Physician: Dai Knight Attending/Referring Phys: Eugene GLOVER Sample Mounter Elsie Stephenson RDCS Procedure CPT: Indications: hypertension, stroke Cardiac Hx: Technical Quality: Good Contrast 1: Agitated Saline Total Dose (mL): 10 Contrast 2: Total Dose (mL): MEASUREMENTS (Male / Female) Normal Values 2D ECHO LV Diastolic Diameter PLAX 4.0 cm 4.2 - 5.9 / 3.9 - 5.3 cm LV Systolic Diameter PLAX 2.7 cm IVS Diastolic Thickness 1.6 cm 0.6 - 1.0 / 0.6 - 0.9 cm LVPW Diastolic Thickness 1.6 cm 0.6 - 1.0 / 0.6 - 0.9 cm LV Relative Wall Thickness 0.8 LVOT Diameter 2.2 cm LV Diastolic Volume MOD BP 113.9 cm??? 67 - 155 / 56 - 104 cm??? LV Systolic Volume MOD BP 49.3 cm??? 22 - 58 / 19 - 49 cm??? LV Ejection Fraction MOD BP 56.7 % >= 55 % LV Cardiac Index MOD BP 2799.5 cm???/min???m??? LV Diastolic Volume MOD 4C 107.7 cm??? LV Systolic Volume MOD 4C 51.8 cm??? LV Ejection Fraction MOD 4C 51.9 % LV Cardiac Index MOD 4C 2421.5 cm???/min???m??? LV Diastolic Length 4C 8.5 cm LV Systolic Length 4C 7.5 cm LV Diastolic Volume MOD 2C 120.5 cm??? LV Systolic Volume MOD 2C 42.8 cm??? LV Ejection Fraction MOD 2C 64.4 % LV Cardiac Index MOD 2C 3364.3 cm???/min???m??? LV Diastolic Length 2C 8.6 cm LV Systolic Length 2C 6.9 cm LA Volume 76.6 cm??? 18 - 58 / 22 - 52 cm??? LA Volume Index 34.6 cm???/m??? 16 - 28 cm???/m??? DOPPLER AV Peak Velocity 157.7 cm/s AV Peak Gradient 10.0 mmHg AV Mean Velocity 124.2 cm/s AV Mean Gradient 6.6 mmHg AV Velocity Time Integral 31.0 cm LVOT Peak Velocity 102.2 cm/s LVOT Peak Gradient 4.2 mmHg LVOT Velocity Time Integral 19.0 cm LVOT Stroke Volume 72.4 cm??? LVOT Stroke Volume Index 34.3 ml/m??? LVOT Cardiac Index 3136.5 cm???/min???m??? AV Area Cont Eq vti 2.3 cm??? AV Area Cont Eq pk 2.5 cm??? PV Peak Velocity 126.3 cm/s PV Peak Gradient 6.4 mmHg FINDINGS Left Ventricle Left ventricular ejection fraction is estimated at 50-55 %. Moderately increased septal wall thickness. Moderately increased posterior wall thickness. Mildly increased left ventricular diastolic volume. No obvious regional wall motion abnormalities. Right Ventricle Normal right ventricular size and function. Unable to estimate the right ventricular systolic pressure. Right Atrium Normal right atrial size. Negative agitated saline bubble study for right to left shunt. Left Atrium Moderately increased left atrial volume. Mildly increased left atrial area. Mitral Valve Structurally normal mitral valve. No mitral stenosis, regurgitation or prolapse. Aortic Valve Trileaflet aortic valve. Aortic valve sclerosis. No aortic valve stenosis or regurgitation. Tricuspid Valve Structurally normal tricuspid valve. No tricuspid stenosis. No tricuspid regurgitation. Pulmonic Valve Structurally normal pulmonic valve. No pulmonic stenosis. No pulmonic regurgitation. Pericardium No pericardial effusion. Fat pad. Aorta Aortic annulus normal. Mildly dilated proximal ascending aorta (tube). CONCLUSIONS Left ventricular ejection fraction 50 to 55% Mild to moderately dilated left atrium Negative bubble study No tricuspid regurgitation No pericardial effusion Previewed by: Dr. Hamilton Mcclendon DO (Electronically Signed) Final Date: 13 Jun 2024 13:36
[2024-06-13 15:55] LABS: LDL Cholesterol,Calculated 112.6 mg/dL (0.0-131.0)
[2024-06-13 16:57] LABS: Glucose,Whole Blood 138 mg/dL (70-110)
[2024-06-13] MEDS: METOPROLOL TARTRATE 25 MG TAB PO SCH (17:39)
[2024-06-13 19:55] LABS: Glucose,Whole Blood 163 mg/dL (70-110)
[2024-06-13] MEDS: INSULIN GLARGINE (LANTUS) 100 UNIT/ML SYR SQ SCH (21:27)
--- NOTE | 2024-06-13 22:12 | P.PN ---
Subjective Progress Note Date: 06/13/24 63-year-old female came in after a fall patient had a mechanical fall patient underwent workup with CT abdomen pelvis hip CT pelvic and hip x-ray all of which did not show any significant abdominal patient had abdominal pain when she came in patient presently denies any abdominal pain patient is also found to have highly elevated blood sugars. Patient is not a known diabetic. Patient blood pressure is also elevated. 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 Nonobstructing renal calculi, colonic diverticulosis. And there is a incidental finding of left adrenal nodule. 06/12/2024 Patient is evaluated today in follow-up in the medical floor. There is concern for stroke as patient is displaying weakness more on her right side. Cognitively she appears to be altered. Family member at the bedside states that she has not been in to see a medical doctor for quite some time. States that she is likely been a diabetic with hypertension for a while but just has been undiagnosed. Her blood pressure remains elevated and losartan was increased up to 100 mg daily. Her blood glucose in the 300s. Brain CT reveals remote lacunar infarct in the left quinn radiata. 06/13/2024 Patient is evaluated today in follow up on the medical floor. Continues with altered mentation and right sided weakness. Brain CTA reveals left frontal lobe area of suspected ischemia; no evidence of dissection of the cervical internal carotid arteries or vertebral arteries. No evidence of significant stenosis of the carotid bifurcations. No evidence of intracranial high-grade stenosis or int racranial aneurysm. Echocardiogram reveals EF 50-55%. mild to moderately dilated left atrium, negative bubble study, no TR, no pericardial effusion. Brain MRI reveals acute CVA left frontal lobe, tiny focus within the splenium of the corpus callosum, additional tiny focus posterior right temporal lobe. TSH 1.710. Lipid panel WNL. Patient received IV ativan for the MRI and appears sedated, family requesting patient not receive ativan again. Review of Systems Constitutional: Denied any fatigue denied any fever. Cardio vascular: denied any chest pain, palpitations Gastrointestinal: denied any nausea, vomiting, diarrhea Pulmonary: Denied any shortness of breath cough Neurologic denied any new focal deficits Reports swallowing difficulties All inpatient medications were reviewed and appropriate changes in these medications as dictated in the interval history and assessment and plan. PHYSICAL EXAMINATION: GENERAL: The patient is alert and oriented x1, not in any acute distress. Well developed, well nourished. Lethargic. HEENT: Pupils are round and equally reacting to light. EOMI. No scleral icterus. No conjunctival pallor. Normocephalic, atraumatic. No pharyngeal erythema. No thyromegaly. CARDIOVASCULAR: S1 and S2 present. No murmurs, rubs, or gallops. PULMONARY: Chest is clear to auscultation, no wheezing or crackles. ABDOMEN: Soft, nontender, nondistended, normoactive bowel sounds. No palpable organomegaly. MUSCULOSKELETAL: No joint swelling or deformity. EXTREMITIES: No cyanosis, clubbing, or pedal edema. NEUROLOGICAL: Right sided weakness. SKIN: No rashes. Assessment and plan -Fall secondary to generalized weakness patient does have peripheral neuropathy -Right sided weakness concern for acute ischemic stroke -Type 2 diabetes mellitus new onset; hgb a1c 12.3 - Hypertension new onset essential hypertension; uncontrolled - Diabetic neuropathy - Chronic nicotine use GI prophylaxis DVT prophylaxis: Subcu heparin Full Code Plan Continue aspirin 81 mg daily, lipitor 40 mg HS. Neurology consultation PT/OT Speech therapy consultation Increase losartan to 100 mg daily Add metoprolol, amlodipine Add lantus at HS Continue metformin and Linagliptin Continue accuchecks ACHS; sliding scale insulin and scheduled meal time insulin The impression and plan of care has been dictated by Dai Knight, Nurse Practitioner as directed. Dr. Lai MD I have performed a history and physical examination and medical decision making of this patient, discussed the same with the dictator, and agree with the dictators assessment and plan as written, documented as a scribe. Based on total visit time, I have performed more than 50% of this visit. Objective - Vital Signs Vital signs: Vital Signs Temp 98.9 F 06/13/24 12:00 Pulse 94 06/13/24 12:00 Resp 18 06/13/24 16:00 BP 189/105 06/13/24 16:00 Pulse Ox 98 06/13/24 16:00 FiO2 Intake & Output 06/13/24 06/13/24 06/14/24 06:59 18:59 06:59 Intake Total 270 120 Output Total 500 1150 Balance -230 -1150 120 Weight 96.5 kg Intake: IV 30 Invasive Line 2 20 Invasive Line 3 10 Oral 240 120 Output: Urine 500 1150 Other: Voiding Method External Catheter External Catheter # Voids 1 - Labs CBC & Chem 7: 06/12/24 07:04 06/13/24 07:24 Labs: Abnormal Lab Results - Last 24 Hours (Table) 06/13/24 06/13/24 06/13/24 Range/Units 06:29 07:24 11:44 ABG HCO3 (21-25) mmol/L ABG Total CO2 (19-24) mmol/L ABG O2 Saturation (94-97) % Sodium 135 L (137-145) mmol/L Creatinine 0.44 L (0.52-1.04) mg/dL Glucose 226 H (74-99) mg/dL POC Glucose (mg/dL) 198 H 291 H (70-110) mg/dL 06/13/24 06/13/24 06/13/24 Range/Units 12:16 16:56 19:49 ABG HCO3 27 H (21-25) mmol/L ABG Total CO2 29 H (19-24) mmol/L ABG O2 Saturation 98.5 H (94-97) % Sodium (137-145) mmol/L Creatinine (0.52-1.04) mg/dL Glucose (74-99) mg/dL POC Glucose (mg/dL) 138 H 163 H (70-110) mg/dL Assessment and Plan Time with Patient: Less than 30
[2024-06-14] MEDS: amLODIPine 10 MG TAB PO SCH (00:33)
[2024-06-14 06:09] LABS: Glucose,Whole Blood 164 mg/dL (70-110)
--- NOTE | 2024-06-14 10:23 | P.PN ---
Subjective Progress Note Date: 06/13/24 Patient was seen for follow-up. Patient is laying in the bed. Patient's daughter was present by the bedside. She feels that she is slightly better. No new concerns. Objective - Vital Signs Vital signs: Vital Signs Temp 98.2 F 06/13/24 03:10 Pulse 90 06/13/24 03:10 Resp 18 06/13/24 03:10 BP 184/91 06/13/24 03:10 Pulse Ox 99 06/13/24 03:10 FiO2 Intake & Output 06/12/24 06/13/24 06/13/24 18:59 06:59 18:59 Intake Total 360 270 Output Total 1450 500 Balance -1090 -230 Weight 100.5 kg 96.5 kg Intake: IV 30 Invasive Line 2 20 Invasive Line 3 10 Oral 360 240 Output: Urine 1450 500 Other: Voiding Method External Catheter # Voids 1 1 - Exam Examination unchanged. - Labs CBC & Chem 7: 06/12/24 07:04 06/13/24 07:24 Labs: Abnormal Lab Results - Last 24 Hours (Table) 06/12/24 06/12/24 06/12/24 Range/Units 11:19 16:05 20:06 Sodium (137-145) mmol/L Creatinine (0.52-1.04) mg/dL Glucose (74-99) mg/dL POC Glucose (mg/dL) 363 H 205 H 281 H (70-110) mg/dL 06/13/24 06/13/24 Range/Units 06:29 07:24 Sodium 135 L (137-145) mmol/L Creatinine 0.44 L (0.52-1.04) mg/dL Glucose 226 H (74-99) mg/dL POC Glucose (mg/dL) 198 H (70-110) mg/dL Assessment and Plan Assessment: * 63-year-old female, with right leg weakness going on for weeks to months, seems to have got worse in the last couple weeks. Also has developed de creased dexterity and some weakness of the right arm. CT head revealed evidence of old left basal ganglial stroke (probable cause of "chronic" right leg weakness of few weeks to few months duration), and on my review also appears to have some possible subacute watershed type of ischemia between the left MCA/DRE territory (cause of recent worsening). * New onset diabetes * Hypertension * Chronic back pain Plan: * Patient will undergo workup for acute/subacute CVA. * Await MRI of the brain without contrast, evaluate for acute CVA * 2-D echo revealed LVEF 50 to 55%. No obvious regional wall motion abnormalities. Mild to moderately dilated left atrium. Negative bubble study for [id number] shunt. Moderately increased left atrial volume. No valvular abnormalities. * Stat CTA of head and neck was done. It revealed left frontal lobe area of suspected acute ischemia seen on 06/12/2024 is redemonstrated. No evidence of dissection of the cervical internal carotid arteries or vertebral arteries. No evidence of significant stenosis at the carotid bifurcations. No evidence of intracranial high-grade stenosis or intracranial aneurysm. * Fasting a.m. lipid panel cholesterol 186, LDL 112, HDL 49, triglycerides 122. Patient started on Lipitor 40 mg daily. * Hemoglobin A1c 12.5, consistent with new onset diabetes. Optimize control of diabetes to target A1c <7.0 * B12 514, folate 17.30 both normal * Permissive hypertension for next 24-48 hours * Patient was not taking any antiplatelet medication at home. Patient's family believes that she is getting worse. Patient will be loaded with aspirin 324 mg, and Plavix 300 mg x 1 dose. She will be maintained on aspirin 81 mg and Plavix 75 mg for now, pending above workup. * Start Pepcid 20 mg twice daily. * Neuro checks every 2 hours Telemetry monitoring rule out any arrhythmia * PT, OT, speech therapy * Recommend complete tobacco cessation. Patient is a light smoker. * DVT prophylaxis: Heparin 5000 units subcu every 12 hours * Consider consultation with inpatient rehabilitation. * Discussed with patient's daughter.
[2024-06-14 11:31] LABS: Glucose,Whole Blood 184 mg/dL (70-110)
--- NOTE | 2024-06-14 14:06 | P.PN ---
Subjective Progress Note Date: 06/14/24 63-year-old female came in after a fall patient had a mechanical fall patient underwent workup with CT abdomen pelvis hip CT pelvic and hip x-ray all of which did not show any significant abdominal patient had abdominal pain when she came in patient presently denies any abdominal pain patient is also found to have highly elevated blood sugars. Patient is not a known diabetic. Patient blood pressure is also elevated. 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 Nonobstructing renal calculi, colonic diverticulosis. And there is a incidental finding of left adrenal nodule. 06/12/2024 Patient is evaluated today in follow-up in the medical floor. There is concern for stroke as patient is displaying weakness more on her right side. Cognitively she appears to be altered. Family member at the bedside states that she has not been in to see a medical doctor for quite some time. States that she is likely been a diabetic with hypertension for a while but just has been undiagnosed. Her blood pressure remains elevated and losartan was increased up to 100 mg daily. Her blood glucose in the 300s. Brain CT reveals remote lacunar infarct in the left quinn radiata. 06/13/2024 Patient is evaluated today in follow up on the medical floor. Continues with altered mentation and right sided weakness. Brain CTA reveals left frontal lobe area of suspected ischemia; no evidence of dissection of the cervical internal carotid arteries or vertebral arteries. No evidence of significant stenosis of the carotid bifurcations. No evidence of intracranial high-grade stenosis or int racranial aneurysm. Echocardiogram reveals EF 50-55%. mild to moderately dilated left atrium, negative bubble study, no TR, no pericardial effusion. Brain MRI reveals acute CVA left frontal lobe, tiny focus within the splenium of the corpus callosum, additional tiny focus posterior right temporal lobe. TSH 1.710. Lipid panel WNL. Patient received IV ativan for the MRI and appears sedated, family requesting patient not receive ativan again. 06/14/2024 Patient is evaluated today in follow up sitting up in the chair. Continues with right sided weakness. Brain MRI positive. Is continued on aspirin and statin therapy. Currently pending an accepting rehab facility. Blood glucose getting more controlled down to 180-160s. Blood pressure also better controlled at 159/79. Had long discussion with patient and son at the bedside regarding cigarette smoking and tobacco vape cessation. Patient to be started on a nicotine patch taper. Review of Systems Constitutional: Denied any fatigue denied any fever. Cardio vascular: denied any chest pain, palpitations Gastrointestinal: denied any nausea, vomiting, diarrhea Pulmonary: Denied any shortness of breath cough Neurologic denied any new focal deficits Reports swallowing difficulties which are improving All inpatient medications were reviewed and appropriate changes in these medications as dictated in the interval history and assessment and plan. PHYSICAL EXAMINATION: GENERAL: The patient is alert and oriented x1, not in any acute distress. Well developed, well nourished. Lethargic. HEENT: Pupils are round and equally reacting to light. EOMI. No scleral icterus. No conjunctival pallor. Normocephalic, atraumatic. No pharyngeal erythema. No thyromegaly. CARDIOVASCULAR: S1 and S2 present. No murmurs, rubs, or gallops. PULMONARY: Chest is clear to auscultation, no wheezing or crackles. ABDOMEN: Soft, nontender, nondistended, normoactive bowel sounds. No palpable organomegaly. MUSCULOSKELETAL: No joint swelling or deformity. EXTREMITIES: No cyanosis, clubbing, or pedal edema. NEUROLOGICAL: Right sided weakness. SKIN: No rashes. Assessment and plan - Fall secondary to generalized weakness patient does have peripheral neuropathy - Right sided weakness due to acute ischemic stroke - Type 2 diabetes mellitus new onset; hgb a1c 12.3 - Hypertension new onset essential hypertension; uncontrolled - Diabetic neuropathy - Chronic nicotine use GI prophylaxis DVT prophylaxis: Subcu heparin Full Code Plan Continue aspirin 81 mg daily, lipitor 40 mg HS. Neurology consultation PT/OT Speech therapy consultation Increase losartan to 100 mg daily Add metoprolol, amlodipine Add lantus at HS which was increased to 30 units HS and blood glucose improving Continue metformin and Linagliptin Continue accuchecks ACHS; sliding scale insulin and scheduled meal time insulin Add nicotine patch Currently pending accepting rehab facility and discharge planning The impression and plan of care has been dictated by Dai Knight Nurse Practitioner as directed. Dr. Lai MD I have performed a history and physical examination and medical decision making of this patient, discussed the same with the dictator, and agree with the dictators assessment and plan as written, documented as a scribe. Based on total visit time, I have performed more than 50% of this visit. Objective - Vital Signs Vital signs: Vital Signs Temp 98.7 F 06/14/24 08:00 Pulse 94 06/14/24 08:00 Resp 16 06/14/24 08:00 BP 159/79 06/14/24 08:00 Pulse Ox 97 06/14/24 08:00 FiO2 Intake & Output 06/13/24 06/14/24 06/14/24 18:59 06:59 18:59 Intake Total 130 Output Total 1150 750 400 Balance -1150 -620 -400 Weight 97.5 kg Intake: IV 10 Invasive Line 3 10 Oral 120 Output: Urine 1150 750 400 Other: Voiding Method External Catheter External Catheter External Catheter # Bowel Movements 1 - Labs CBC & Chem 7: 06/12/24 07:04 06/13/24 07:24 Labs: Abnormal Lab Results - Last 24 Hours (Table) 06/13/24 06/13/24 06/14/24 Range/Units 16:56 19:49 05:58 POC Glucose (mg/dL) 138 H 163 H 164 H (70-110) mg/dL 06/14/24 Range/Units 11:29 POC Glucose (mg/dL) 184 H (70-110) mg/dL Assessment and Plan Time with Patient: Less than 30
[2024-06-14 16:33] LABS: Glucose,Whole Blood 191 mg/dL (70-110)
[2024-06-14] MEDS: NICOTINE 21MG/24HR PATCH TRANSDERM SCH (16:58)
[2024-06-14] MEDS: CLOPIDOGREL 75 MG TAB PO SCH (16:58)
[2024-06-14 19:51] LABS: Glucose,Whole Blood 239 mg/dL (70-110)
[2024-06-15 06:00] LABS: Glucose,Whole Blood 185 mg/dL (70-110)
[2024-06-15 07:57] LABS: African American GFR (CKD) >90 (>60 ml/min/1.73 sqM); Anion Gap 8 mmol/L; Blood Urea Nitrogen 10 mg/dL (7-17); Calcium 8.8 mg/dL (8.4-10.2); Carbon Dioxide 24 mmol/L (22-30); Chloride 104 mmol/L (98-107); Glucose 191 mg/dL (74-99); Non-African American GFR(CKD) >90 (>60 ml/min/1.73 sqM); Potassium 3.4 mmol/L (3.5-5.1); Sodium 136 mmol/L (137-145)
--- NOTE | 2024-06-15 08:44 | P.PN ---
Subjective Progress Note Date: 06/14/24 Patient was seen for follow-up. Patient is laying in the bed. Patient's son was present by the bedside. Patient appears somewhat more obtunded. She patient states that she is awake, although she keeps her eyes closed. Did not cooperate very well with examination. Patient son states that she has history of vaping nicotine heavily for last 2 to 3 years. Objective - Vital Signs Vital signs: Vital Signs Temp 98.7 F 06/14/24 08:00 Pulse 94 06/14/24 08:00 Resp 16 06/14/24 08:00 BP 159/79 06/14/24 08:00 Pulse Ox 97 06/14/24 08:00 FiO2 Intake & Output 06/13/24 06/14/24 06/14/24 18:59 06:59 18:59 Intake Total 130 Output Total 1150 750 400 Balance -1150 -620 -400 Weight 97.5 kg Intake: IV 10 Invasive Line 3 10 Oral 120 Output: Urine 1150 750 400 Other: Voiding Method External Catheter External Catheter External Catheter # Bowel Movements 1 - Exam Patient is somnolent, somewhat lethargic. Patient did not speak much. Limited speech was clear. On examination patient has right pronator drift about 40 degree. Her muscle strength is normal on the left side. On the right side, her deltoid is 3, biceps 4-, triceps 4-, marine insulator 4, hip flexion 1-2, ankle dorsiflexion 1-2. - Labs CBC & Chem 7: 06/12/24 07:04 06/15/24 07:07 Labs: Abnormal Lab Results - Last 24 Hours (Table) 06/13/24 06/13/24 06/14/24 Range/Units 16:56 19:49 05:58 POC Glucose (mg/dL) 138 H 163 H 164 H (70-110) mg/dL 06/14/24 Range/Units 11:29 POC Glucose (mg/dL) 184 H (70-110) mg/dL Assessment and Plan Assessment: * 63-year-old female, with right leg weakness going on for weeks to months, seems to have got worse in the last couple weeks. Also has developed decreased dexterity and some weakness of the right arm. CT head revealed evidence of old left basal ganglial stroke (probable cause of "chronic" right leg weakness of few weeks to few months duration), and on my review also appears to have some possible subacute watershed type of ischemia between the left MCA/DRE territory (cause of recent worsening). * New onset diabetes * Hypertension * Hyperlipidemia * Chronic back pain * Vapes nicotine * No health maintenance for years Plan: * Patient seems to have got worse with more significant right hemiparesis. * MRI of the brain revealed multifocal globular increased signal on diffusion- weighted imaging involving the left frontal lobe consistent with acute CVA immediately within the anterior cerebral artery territory. Tiny focus seen within the splenium of the corpus callosum. Additional tiny focus posterior right temporal lobe. No evidence of hemorrhagic conversion. I personally reviewed MRI, agree with the findings, except that I could not find the tiny focus posterior right temporal lobe lesion. * 2-D echo revealed LVEF 50 to 55%. No obvious regional wall motion abnormalities. Mild to moderately dilated left atrium. Negative bubble study for [id number] shunt. Moderately increased left atrial volume. No valvular abnormalities. * CTA of head and neck revealed no evidence of dissection of the cervical internal carotid arteries or vertebral arteries. No evidence of significant stenosis at the carotid bifurcations. No evidence of intracranial high-grade stenosis or intracranial aneurysm. * Fasting a.m. lipid panel cholesterol 186, LDL 112, HDL 49, triglycerides 122. Patient started on Lipitor 40 mg daily. * Hemoglobin A1c 12.5, consistent with new onset diabetes. Optimize control of diabetes to target A1c <7.0 * B12 514, folate 17.30 both normal * Permissive hypertension for next 24-48 hours * Patient was not taking any antiplatelet medication at home. Patient's family believes that she is getting worse. Patient will be loaded with aspirin 324 mg, and Plavix 300 mg x 1 dose. She will be maintained on aspirin 81 mg and Plavix 75 mg for now, pending above workup. * Start Pepcid 20 mg twice daily. * Neuro checks every 2 hours Telemetry monitoring rule out any arrhythmia * PT, OT, speech therapy * Recommend complete tobacco cessation. * DVT prophylaxis: Heparin 5000 units subcu every 12 hours * Consider consultation with inpatient rehabilitation. * Discussed with patient's son in detail.
[2024-06-15] MEDS: POTASSIUM CHLORIDE ER 20 MEQ TAB.ER PO STA (09:38)
[2024-06-15 11:43] LABS: Glucose,Whole Blood 255 mg/dL (70-110)
[2024-06-15 16:47] LABS: Glucose,Whole Blood 246 mg/dL (70-110)
--- NOTE | 2024-06-15 18:38 | P.PN ---
Subjective Progress Note Date: 06/15/24 63-year-old female came in after a fall patient had a mechanical fall patient underwent workup with CT abdomen pelvis hip CT pelvic and hip x-ray all of which did not show any significant abdominal patient had abdominal pain when she came in patient presently denies any abdominal pain patient is also found to have highly elevated blood sugars. Patient is not a known diabetic. Patient blood pressure is also elevated. 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 Nonobstructing renal calculi, colonic diverticulosis. And there is a incidental finding of left adrenal nodule. 06/12/2024 Patient is evaluated today in follow-up in the medical floor. There is concern for stroke as patient is displaying weakness more on her right side. Cognitively she appears to be altered. Family member at the bedside states that she has not been in to see a medical doctor for quite some time. States that she is likely been a diabetic with hypertension for a while but just has been undiagnosed. Her blood pressure remains elevated and losartan was increased up to 100 mg daily. Her blood glucose in the 300s. Brain CT reveals remote lacunar infarct in the left quinn radiata. 06/13/2024 Patient is evaluated today in follow up on the medical floor. Continues with altered mentation and right sided weakness. Brain CTA reveals left frontal lobe area of suspected ischemia; no evidence of dissection of the cervical internal carotid arteries or vertebral arteries. No evidence of significant stenosis of the carotid bifurcations. No evidence of intracranial high-grade stenosis or int racranial aneurysm. Echocardiogram reveals EF 50-55%. mild to moderately dilated left atrium, negative bubble study, no TR, no pericardial effusion. Brain MRI reveals acute CVA left frontal lobe, tiny focus within the splenium of the corpus callosum, additional tiny focus posterior right temporal lobe. TSH 1.710. Lipid panel WNL. Patient received IV ativan for the MRI and appears sedated, family requesting patient not receive ativan again. 06/14/2024 Patient is evaluated today in follow up sitting up in the chair. Continues with right sided weakness. Brain MRI positive. Is continued on aspirin and statin therapy. Currently pending an accepting rehab facility. Blood glucose getting more controlled down to 180-160s. Blood pressure also better controlled at 159/79. Had long discussion with patient and son at the bedside regarding cigarette smoking and tobacco vape cessation. Patient to be started on a nicotine patch taper. 06/15/2024 Patient evaluated today in follow up on the medical floor. Son at the bedside all questions were answered. Patient has been continued on nicotine patch secondary to increased cravings. Continues on aspirin 81 mg daily and plavix 75 mg daily. Neurology in to see the patient and felt right sided hemiparesis has been worsening. Patient is more awake and alert. Patient is tolerating diet. Sodium level 136, potassium 3.4, BUN 10, creatinine 0.41. Review of Systems Constitutional: Denied any fatigue denied any fever. Cardio vascular: denied any chest pain, palpitations Gastrointestinal: denied any nausea, vomiting, diarrhea Pulmonary: Denied any shortness of breath cough Neurologic denied any new focal deficits; remains with right sided weakness. Reports swallowing difficulties which are improving All inpatient medications were reviewed and appropriate changes in these medications as dictated in the interval history and assessment and plan. PHYSICAL EXAMINATION: GENERAL: The patient is alert and oriented x1, not in any acute distress. Well developed, well nourished. Lethargic. HEENT: Pupils are round and equally reacting to light. EOMI. No scleral icterus. No conjunctival pallor. Normocephalic, atraumatic. No pharyngeal erythema. No thyromegaly. CARDIOVASCULAR: S1 and S2 present. No murmurs, rubs, or gallops. PULMONARY: Chest is clear to auscultation, no wheezing or crackles. ABDOMEN: Soft, nontender, nondistended, normoactive bowel sounds. No palpable organomegaly. MUSCULOSKELETAL: No joint swelling or deformity. EXTREMITIES: No cyanosis, clubbing, or pedal edema. NEUROLOGICAL: Right sided hemiparesis. Right facial droop. SKIN: No rashes. Assessment and plan - Fall secondary to generalized weakness patient does have peripheral neuropathy - Right sided hemiparesis due to acute ischemic stroke - Type 2 diabetes mellitus new onset; hgb a1c 12.3 - Hypertension new onset essential hypertension; uncontrolled - Diabetic neuropathy - Chronic nicotine use GI prophylaxis DVT prophylaxis: Subcu heparin Full Code Plan Continue aspirin 81 mg daily, plavix 75 mg daily, lipitor 40 mg HS. Neurology consultation PT/OT Speech therapy consultation D/C amlodipine, decrease losartan . Continue to allow permissive hypertension with goal of systolic BP 170-190s. Lantus increased to 40 units HS Continue metformin and Linagliptin Continue accuchecks ACHS; sliding scale insulin and scheduled meal time insulin Add nicotine patch Neurology repeating brain CT Currently pending accepting rehab facility and discharge planning The impression and plan of care has been dictated by Dai Knight, Nurse Pr actitioner as directed. Dr. Lai MD I have performed a history and physical examination and medical decision making of this patient, discussed the same with the dictator, and agree with the dicta tors assessment and plan as written, documented as a scribe. Based on total visit time, I have performed more than 50% of this visit. Objective - Vital Signs Vital signs: Vital Signs Temp 97.9 F 06/15/24 08:00 Pulse 89 06/15/24 16:00 Resp 16 06/15/24 16:00 BP 166/84 06/15/24 16:00 Pulse Ox 96 06/15/24 16:00 FiO2 Intake & Output 06/14/24 06/15/24 06/15/24 18:59 06:59 18:59 Intake Total 120 Output Total 800 1150 500 Balance -800 -1030 -500 Weight 98 kg Intake: Oral 120 Output: Urine 800 1150 500 Other: Voiding Method External Catheter External Catheter External Catheter # Voids 1 - Labs CBC & Chem 7: 06/12/24 07:04 06/15/24 07:07 Labs: Abnormal Lab Results - Last 24 Hours (Table) 06/14/24 06/15/24 06/15/24 Range/Units 19:49 05:58 07:07 Sodium 136 L (137-145) mmol/L Potassium 3.4 L (3.5-5.1) mmol/L Creatinine 0.41 L (0.52-1.04) mg/dL Glucose 191 H (74-99) mg/dL POC Glucose (mg/dL) 239 H 185 H (70-110) mg/dL 06/15/24 06/15/24 Range/Units 11:42 16:45 Sodium (137-145) mmol/L Potassium (3.5-5.1) mmol/L Creatinine (0.52-1.04) mg/dL Glucose (74-99) mg/dL POC Glucose (mg/dL) 255 H 246 H (70-110) mg/dL Assessment and Plan Time with Patient: Less than 30
--- NOTE | 2024-06-15 18:42 | CT ---
EXAMINATION TYPE: CT brain wo con DATE OF EXAM: 06/15/2024 6:07 PM COMPARISON: MRI 06/13/2024, CT 06/12/2024.. CLINICAL INDICATION: Female, 63 years old with history of Worsening right sided weakness, Worsening r ight sided weakness TECHNIQUE: Brain: Axial CT images of the brain were obtained with coronal and sagittal reformats created and rev iewed. Contrast used: None. Oral contrast used: None. CT DLP: 1171.4 mGycm, Automated exposure control for dose reduction was used. FINDINGS: Brain: Extra-axial spaces: No abnormal extra-axial fluid collections. Ventricular system: Within normal limits, mineralization of the choroid plexuses bilaterally in the t emporal lobes. Cerebral parenchyma: Resolution of prior infarct seen within the DRE territory on the left. Additiona l focus within the splenium of the corpus callosum also present. No evidence for hemorrhagic conversi on. No new areas within the visualized. No acute intraparenchymal hemorrhage or mass effect. The rem ainder of the mooney-white junctions are well differentiated. Cerebellum: Unremarkable. Mass effect: No evidence of midline shift. Intracranial vasculature: Atherosclerotic calcifications of the intracranial vessels. Soft tissues: Normal. Calvarium/osseous structures: No depressed skull fracture. Paranasal sinuses and mastoid air cells: Mild scattered paranasal sinus disease. Visualized orbits: Orbital contents are intact. IMPRESSION: Evolution left DRE infarct without evidence for hemorrhagic conversion. [facility], , 06/15/2024 6:40 PM
[2024-06-15] MEDS: LOSARTAN 50 MG TAB PO STA (19:58)
[2024-06-15 20:17] LABS: Glucose,Whole Blood 160 mg/dL (70-110)
[2024-06-15] MEDS: INSULIN GLARGINE (LANTUS) 100 UNIT/ML SYR SQ SCH (21:58)
[2024-06-15] MEDS: MELATONIN 3 MG TABLET PO PRN (21:58)
[2024-06-16 06:05] LABS: Glucose,Whole Blood 113 mg/dL (70-110)
[2024-06-16 08:17] LABS: African American GFR (CKD) >90 (>60 ml/min/1.73 sqM); Anion Gap 5 mmol/L; Blood Urea Nitrogen 16 mg/dL (7-17); Calcium 9.1 mg/dL (8.4-10.2); Carbon Dioxide 25 mmol/L (22-30); Chloride 105 mmol/L (98-107); Glucose 123 mg/dL (74-99); Non-African American GFR(CKD) >90 (>60 ml/min/1.73 sqM); Potassium 3.7 mmol/L (3.5-5.1); Sodium 135 mmol/L (137-145)
[2024-06-16] MEDS ORDERED: LOSARTAN 25 MG TAB PO SCH (09:00)
--- NOTE | 2024-06-16 11:07 | P.PN ---
Subjective Progress Note Date: 06/15/24 Patient was seen for follow-up. Patient is laying in the bed. Patient's daughter was present by the bedside. Patient is somewhat more awake. Objective - Vital Signs Vital signs: Vital Signs Temp 97.9 F 06/15/24 08:00 Pulse 89 06/15/24 16:00 Resp 16 06/15/24 16:00 BP 166/84 06/15/24 16:00 Pulse Ox 96 06/15/24 16:00 FiO2 Intake & Output 06/14/24 06/15/24 06/15/24 18:59 06:59 18:59 Intake Total 120 Output Total 800 1150 500 Balance -800 -1030 -500 Weight 98 kg Intake: Oral 120 Output: Urine 800 1150 500 Other: Voiding Method External Catheter External Catheter External Catheter - Exam Patient is more awake today. Patient speech is clear. No aphasia. On examination patient has right pronator drift about 40 degree. Her muscle strength is normal on the left side. On the right side, her deltoid is 3, biceps 3+, triceps 3+, hematology nurse 4, hip flexion 1-2, ankle dorsiflexion 1-2. Sensory is decreased in the right side of the body including face arm and leg. - Labs CBC & Chem 7: 06/12/24 07:04 06/16/24 07:06 Labs: Abnormal Lab Results - Last 24 Hours (Table) 06/14/24 06/15/24 06/15/24 Range/Units 19:49 05:58 07:07 Sodium 136 L (137-145) mmol/L Potassium 3.4 L (3.5-5.1) mmol/L Creatinine 0.41 L (0.52-1.04) mg/dL Glucose 191 H (74-99) mg/dL POC Glucose (mg/dL) 239 H 185 H (70-110) mg/dL 06/15/24 06/15/24 Range/Units 11:42 16:45 Sodium (137-145) mmol/L Potassium (3.5-5.1) mmol/L Creatinine (0.52-1.04) mg/dL Glucose (74-99) mg/dL POC Glucose (mg/dL) 255 H 246 H (70-110) mg/dL Assessment and Plan Assessment: * 63-year-old female, with right leg weakness going on for weeks to months, seems to have got worse in the last couple weeks. Also has developed decreased dexterity and some weakness of the right arm. CT head revealed evidence of old left basal ganglial stroke (probable cause of "chronic" right leg weakness of few weeks to few months duration), and on my review also appears to have some possible subacute watershed type of ischemia between the left MCA/DRE territory (cause of recent worsening). * New onset diabetes * Hypertension * Hyperlipidemia * Chronic back pain * Vapes nicotine * No health maintenance for years Plan: * Patient seems to have got worse with more significant right hemiparesis. * MRI of the brain revealed multifocal globular increased signal on diffusion- weighted imaging involving the left frontal lobe consistent with acute CVA immediately within the anterior cerebral artery territory. Tiny focus seen within the splenium of the corpus callosum. Additional tiny focus posterior right temporal lobe. No evidence of hemorrhagic conversion. I personally reviewed MRI, agree with the findings, except that I could not find the tiny focus posterior right temporal lobe lesion. * 2-D echo revealed LVEF 50 to 55%. No obvious regional wall motion abnorma lities. Mild to moderately dilated left atrium. Negative bubble study for [id number] shunt. Moderately increased left atrial volume. No valvular abnormalities. * CTA of head and neck revealed no evidence of dissection of the cervical internal carotid arteries or vertebral arteries. No evidence of significant stenosis at the carotid bifurcations. No evidence of intracranial high-grade stenosis or intracranial aneurysm. * Repeat CT head performed today revealed evolution of left DRE infarct without evidence for hemorrhagic conversion. I personally reviewed CT head, agree with the findings. No significant change from the MRI findings. * Recommend permissive hypertension, keep blood pressure between 170-190 systolic. Discussed with primary team, and they will cut back on the blood pressure medication. * Fasting a.m. lipid panel cholesterol 186, LDL 112, HDL 49, triglycerides 122. Patient started on Lipitor 40 mg daily. * Hemoglobin A1c 12.5, consistent with new onset diabetes. Optimize control of diabetes to target A1c <7.0 * B12 514, folate 17.30 both normal * Patient was not taking any antiplatelet medication at home. Patient's family believes that she is getting worse. Patient will be loaded with aspirin 324 mg, and Plavix 300 mg x 1 dose. She will be maintained on aspirin 81 mg and Plavix 75 mg for now, pending above workup. * Start Pepcid 20 mg twice daily. * Neuro checks every 2 hours Telemetry monitoring rule out any arrhythmia * PT, OT, speech therapy * Recommend complete tobacco cessation. * DVT prophylaxis: Heparin 5000 units subcu every 12 hours * Consider consultation with inpatient rehabilitation. * Discussed with patient's daughter in detail.
[2024-06-16 11:55] LABS: Glucose,Whole Blood 206 mg/dL (70-110)
--- NOTE | 2024-06-16 14:33 | P.PN ---
Subjective Progress Note Date: 06/16/24 63-year-old female came in after a fall patient had a mechanical fall patient underwent workup with CT abdomen pelvis hip CT pelvic and hip x-ray all of which did not show any significant abdominal patient had abdominal pain when she came in patient presently denies any abdominal pain patient is also found to have highly elevated blood sugars. Patient is not a known diabetic. Patient blood pressure is also elevated. 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 Nonobstructing renal calculi, colonic diverticulosis. And there is a incidental finding of left adrenal nodule. 06/12/2024 Patient is evaluated today in follow-up in the medical floor. There is concern for stroke as patient is displaying weakness more on her right side. Cognitively she appears to be altered. Family member at the bedside states that she has not been in to see a medical doctor for quite some time. States that she is likely been a diabetic with hypertension for a while but just has been undiagnosed. Her blood pressure remains elevated and losartan was increased up to 100 mg daily. Her blood glucose in the 300s. Brain CT reveals remote lacunar infarct in the left quinn radiata. 06/13/2024 Patient is evaluated today in follow up on the medical floor. Continues with altered mentation and right sided weakness. Brain CTA reveals left frontal lobe area of suspected ischemia; no evidence of dissection of the cervical internal carotid arteries or vertebral arteries. No evidence of significant stenosis of the carotid bifurcations. No evidence of intracranial high-grade stenosis or int racranial aneurysm. Echocardiogram reveals EF 50-55%. mild to moderately dilated left atrium, negative bubble study, no TR, no pericardial effusion. Brain MRI reveals acute CVA left frontal lobe, tiny focus within the splenium of the corpus callosum, additional tiny focus posterior right temporal lobe. TSH 1.710. Lipid panel WNL. Patient received IV ativan for the MRI and appears sedated, family requesting patient not receive ativan again. 06/14/2024 Patient is evaluated today in follow up sitting up in the chair. Continues with right sided weakness. Brain MRI positive. Is continued on aspirin and statin therapy. Currently pending an accepting rehab facility. Blood glucose getting more controlled down to 180-160s. Blood pressure also better controlled at 159/79. Had long discussion with patient and son at the bedside regarding cigarette smoking and tobacco vape cessation. Patient to be started on a nicotine patch taper. 06/15/2024 Patient evaluated today in follow up on the medical floor. Son at the bedside all questions were answered. Patient has been continued on nicotine patch secondary to increased cravings. Continues on aspirin 81 mg daily and plavix 75 mg daily. Neurology in to see the patient and felt right sided hemiparesis has been worsening. Patient is more awake and alert. Patient is tolerating diet. Sodium level 136, potassium 3.4, BUN 10, creatinine 0.41. 06/16/2024 Patient evaluated today in follow up. Continues with the right upper extremity weakness which does appear worse than yesterday. Brain CT reveals evolving left DRE infarct. Patient is reporting some LLQ abdominal discomfort rating it a 2/10 currently. She is nondistended with normoactive bowel sounds. Blood pressure up to 166/71 and may need to add back a small dose of metoprolol as heart rate is 106 currently. Sodium 135, potassium 3.7, BUN 16, creatinine 0.50. Review of Systems Constitutional: Denied any fatigue denied any fever. Cardio vascular: denied any chest pain, palpitations Gastrointestinal: denied any nausea, vomiting, diarrhea Pulmonary: Denied any shortness of breath cough Neurologic denied any new focal deficits; remains with right sided weakness. Reports swallowing difficulties which are improving All inpatient medications were reviewed and appropriate changes in these medications as dictated in the interval history and assessment and plan. PHYSICAL EXAMINATION: GENERAL: The patient is alert and oriented x1, not in any acute distress. Well developed, well nourished. Lethargic. HEENT: Pupils are round and equally reacting to light. EOMI. No scleral icterus. No conjunctival pallor. Normocephalic, atraumatic. No pharyngeal erythema. No thyromegaly. CARDIOVASCULAR: S1 and S2 present. No murmurs, rubs, or gallops. PULMONARY: Chest is clear to auscultation, no wheezing or crackles. ABDOMEN: Soft, nontender, nondistended, normoactive bowel sounds. No palpable organomegaly. MUSCULOSKELETAL: No joint swelling or deformity. EXTREMITIES: No cyanosis, clubbing, or pedal edema. NEUROLOGICAL: Right sided hemiparesis. Right facial droop. SKIN: No rashes. Assessment and plan - Fall secondary to generalized weakness patient does have peripheral neuropathy - Right sided hemiparesis due to acute ischemic stroke; evolving left DRE infarct. - Type 2 diabetes mellitus new onset; hgb a1c 12.3 - Hypertension new onset essential hypertension; uncontrolled - Diabetic neuropathy - Chronic nicotine use GI prophylaxis DVT prophylaxis: Subcu heparin Full Code Plan Check a bladder scan Continue aspirin 81 mg daily, plavix 75 mg daily, lipitor 40 mg HS. Neurology consultation PT/OT Speech therapy consultation D/C amlodipine, discontinue losartan . Continue to allow permissive hypertension with goal of systolic BP 170-190s. Lantus increased to 40 units HS Continue metformin and Linagliptin Continue accuchecks ACHS; sliding scale insulin and scheduled meal time insulin Add nicotine patch Currently pending accepting rehab facility and discharge planning The impression and plan of care has been dictated by Dai Knight, Nurse Practitioner as directed. Dr. Lai MD I have performed a history and physical examination and medical decision making of this patient, discussed the same with the dictator, and agree with the dic tators assessment and plan as written, documented as a scribe. Based on total visit time, I have performed more than 50% of this visit. Objective - Vital Signs Vital signs: Vital Signs Temp 98.1 F 06/16/24 04:59 Pulse 106 H 06/16/24 12:00 Resp 16 06/16/24 12:00 BP 166/71 06/16/24 12:00 Pulse Ox 98 06/16/24 12:00 FiO2 Intake & Output 06/15/24 06/16/24 06/16/24 18:59 06:59 18:59 Output Total 500 200 Balance -500 -200 Weight 98 kg Output: Urine 500 200 Other: Voiding Method External Catheter External Catheter External Catheter # Voids 1 1 - Labs CBC & Chem 7: 06/12/24 07:04 06/16/24 07:06 Labs: Abnormal Lab Results - Last 24 Hours (Table) 06/15/24 06/15/24 06/16/24 Range/Units 16:45 20:15 06:01 Sodium (137-145) mmol/L Creatinine (0.52-1.04) mg/dL Glucose (74-99) mg/dL POC Glucose (mg/dL) 246 H 160 H 113 H (70-110) mg/dL 06/16/24 06/16/24 Range/Units 07:06 11:54 Sodium 135 L (137-145) mmol/L Creatinine 0.50 L (0.52-1.04) mg/dL Glucose 123 H (74-99) mg/dL POC Glucose (mg/dL) 206 H (70-110) mg/dL Assessment and Plan Time with Patient: Less than 30
[2024-06-16 16:53] LABS: Glucose,Whole Blood 145 mg/dL (70-110)
[2024-06-16 19:47] LABS: Glucose,Whole Blood 254 mg/dL (70-110)
--- NOTE | 2024-06-17 02:28 | P.PN ---
Subjective Progress Note Date: 06/16/24 Patient was seen for follow-up. Patient is sitting in the recliner. Patient is still quiet, and slightly somnolent. No new concerns. Patient's son was present by the bedside. Patient continues to have right hemiparesis. Objective - Vital Signs Vital signs: Vital Signs Temp 98.1 F 06/16/24 04:59 Pulse 106 H 06/16/24 12:00 Resp 16 06/16/24 12:00 BP 166/71 06/16/24 12:00 Pulse Ox 98 06/16/24 12:00 FiO2 Intake & Output 06/15/24 06/16/24 06/16/24 18:59 06:59 18:59 Output Total 500 200 Balance -500 -200 Weight 98 kg Output: Urine 500 200 Other: Voiding Method External Catheter External Catheter External Catheter # Voids 1 1 - Exam Patient is more awake today. Patient speech is clear. No aphasia. On examination patient has right pronator drift about 40 degree. Her muscle strength is normal on the left side. On the right side, her deltoid is 3, biceps 3+, triceps 3+, graduation coach 4, hip flexion 1-2, ankle dorsiflexion 1-2. Sensory is decreased in the right side of the body including face arm and leg. - Labs CBC & Chem 7: 06/12/24 07:04 06/16/24 07:06 Labs: Abnormal Lab Results - Last 24 Hours (Table) 06/15/24 06/15/24 06/16/24 Range/Units 16:45 20:15 06:01 Sodium (137-145) mmol/L Creatinine (0.52-1.04) mg/dL Glucose (74-99) mg/dL POC Glucose (mg/dL) 246 H 160 H 113 H (70-110) mg/dL 06/16/24 06/16/24 Range/Units 07:06 11:54 Sodium 135 L (137-145) mmol/L Creatinine 0.50 L (0.52-1.04) mg/dL Glucose 123 H (74-99) mg/dL POC Glucose (mg/dL) 206 H (70-110) mg/dL Assessment and Plan Assessment: * 63-year-old female, with right leg weakness going on for weeks to months, seems to have got worse in the last couple weeks. Also has developed decreased dexterity and some weakness of the right arm. CT head revealed evidence of old left basal ganglial stroke (probable cause of "chronic" right leg weakness of few weeks to few months duration), and on my review also appears to have some possible subacute watershed type of ischemia between the left MCA/DRE territory (cause of recent worsening). * New onset diabetes * Hypertension * Hyperlipidemia * Chronic back pain * Vapes nicotine * No health maintenance for years Plan: * Patient seems to have got worse with more significant right hemiparesis. * MRI of the brain revealed multifocal globular increased signal on diffusion- weighted imaging involving the left frontal lobe consistent with acute CVA immediately within the anterior cerebral artery territory. Tiny focus seen within the splenium of the corpus callosum. Additional tiny focus posterior right temporal lobe. No evidence of hemorrhagic conversion. I personally reviewed MRI, agree with the findings, except that I could not find the tiny focus posterior right temporal lobe lesion. * 2-D echo revealed LVEF 50 to 55%. No obvious regional wall motion abnormalities. Mild to moderately dilated left atrium. Negative bubble study for [id number] shunt. Moderately increased left atrial volume. No valvular abnormalities. * CTA of head and neck revealed no evidence of dissection of the cervical internal carotid arteries or vertebral arteries. No evidence of significant stenosis at the carotid bifurcations. No evidence of intracranial high-grade stenosis or intracranial aneurysm. * Repeat CT head 06/15/2024 revealed evolution of left DRE infarct without evidence for hemorrhagic conversion. I personally reviewed CT head, agree with the findings. No significant change from the MRI findings. * May start gradually controlling blood pressure to less than 160 systolic. * Fasting a.m. lipid panel cholesterol 186, LDL 112, HDL 49, triglycerides 122. Patient started on Lipitor 40 mg daily. * Hemoglobin A1c 12.5, consistent with new onset diabetes. Optimize control of diabetes to target A1c <7.0 * B12 514, folate 17.30 both normal * Patient was not taking any antiplatelet medication at home. Patient's family believes that she is getting worse. Patient will be loaded with aspirin 324 mg, and Plavix 300 mg x 1 dose. She will be maintained on aspirin 81 mg and Plavix 75 mg. * Start Pepcid 20 mg twice daily. * Neuro checks every 2 hours Telemetry monitoring rule out any arrhythmia * PT, OT, speech therapy * Recommend complete tobacco cessation. * DVT prophylaxis: Heparin 5000 units subcu every 12 hours * Consider consultation with inpatient rehabilitation. * Discussed with patient's son in detail. He had numerous questions, all answered to satisfaction. * Dr. Feliberto Barron starting neurology service from the morning.
[2024-06-17 05:50] LABS: Glucose,Whole Blood 113 mg/dL (70-110)
[2024-06-17 06:55] LABS: Basophils # (A) 0.05 10*3/uL (0.00-0.10); Basophils % (A) 0.6 %; Eosinophils # (A) 0.12 10*3/uL (0.04-0.35); Eosinophils % (A) 1.4 %; HCT 40.1 % (37.2-46.3); HGB 13.8 g/dL (12.0-15.0); Lymphocytes % (A) 22.2 %; MCH 28.5 pg (27.0-32.0); MCHC 34.4 g/dL (32.0-37.0); MCV 82.9 fL (80.0-97.0); Mean Platelet Volume 9.9 fL (9.5-12.2); Monocytes # (A) 0.55 10*3/uL (0.20-1.00); Monocytes % (A) 6.4 %; Neutrophils # (A) 5.92 10*3/uL (1.80-7.70); Platelet Count 303 10*3/uL (140-440); RBC 4.84 10*6/uL (4.10-5.20); RDW 12.4 % (11.5-14.5); WBC 8.57 10*3/uL (4.50-10.00)
[2024-06-17 07:10] LABS: African American GFR (CKD) >90 (>60 ml/min/1.73 sqM); Anion Gap 5 mmol/L; Blood Urea Nitrogen 15 mg/dL (7-17); Carbon Dioxide 28 mmol/L (22-30); Chloride 103 mmol/L (98-107); Glucose 106 mg/dL (74-99); Non-African American GFR(CKD) >90 (>60 ml/min/1.73 sqM); Potassium 3.7 mmol/L (3.5-5.1); Sodium 136 mmol/L (137-145)
[2024-06-17] MEDS: POTASSIUM CHLORIDE ER 20 MEQ TAB.ER PO STA (10:14)
[2024-06-17 11:28] LABS: Glucose,Whole Blood 132 mg/dL (70-110)
[2024-06-17] MEDS: POTASSIUM CITRATE 10 MEQ TABLET.ER PO SCH (12:29)
[2024-06-17] MEDS: polyethylene glycoL 3350 17 GM POWD.PACK PO SCH (13:19)
[2024-06-17] MEDS: POTASSIUM BICARBONATE/CIT AC 20 MEQ TABLET.EFF PO ONE (13:19)
--- NOTE | 2024-06-17 13:57 | US ---
EXAMINATION TYPE: US venous doppler duplex LE LT DATE OF EXAM: 06/17/2024 1:46 PM COMPARISON: NONE CLINICAL INDICATION: Female, 63 years old with history of swelling and pain; Lt leg pain x 1 week, n o hx of dvt, currently on blood thinners, Pain TECHNIQUE: The lower extremity deep venous system is examined utilizing real time linear array sonog odin with graded compression, color doppler sonography, and spectral doppler. SIDE PERFORMED: Left FINDINGS: VESSELS IMAGED: Common Femoral Vein Deep Femoral Vein Greater Saphenous Vein * Femoral Vein Popliteal Vein Small Saphenous Vein * Proximal Calf Veins (* superficial vessels) limited exam due to pt body habitus & pt could not sit still, kept moving leg Left Leg: appears neg for DVT, Color Doppler imaging shows patency of the vessels. Spectral waveform s are within normal limits. Calf & pop veins limited IMPRESSION: Limited examination due to patient's body habitus and patient movement. No visualized deep venous thrombosis of the left lower extremity however the calf and popliteal veins were limited. [facility], , 06/17/2024 1:55 PM
--- NOTE | 2024-06-17 15:07 | P.PN ---
Subjective Progress Note Date: 06/17/24 63-year-old female came in after a fall patient had a mechanical fall patient underwent workup with CT abdomen pelvis hip CT pelvic and hip x-ray all of which did not show any significant abdominal patient had abdominal pain when she came in patient presently denies any abdominal pain patient is also found to have highly elevated blood sugars. Patient is not a known diabetic. Patient blood pressure is also elevated. 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 Nonobstructing renal calculi, colonic diverticulosis. And there is a incidental finding of left adrenal nodule. 06/12/2024 Patient is evaluated today in follow-up in the medical floor. There is concern for stroke as patient is displaying weakness more on her right side. Cognitively she appears to be altered. Family member at the bedside states that she has not been in to see a medical doctor for quite some time. States that she is likely been a diabetic with hypertension for a while but just has been undiagnosed. Her blood pressure remains elevated and losartan was increased up to 100 mg daily. Her blood glucose in the 300s. Brain CT reveals remote lacunar infarct in the left quinn radiata. 06/13/2024 Patient is evaluated today in follow up on the medical floor. Continues with altered mentation and right sided weakness. Brain CTA reveals left frontal lobe area of suspected ischemia; no evidence of dissection of the cervical internal carotid arteries or vertebral arteries. No evidence of significant stenosis of the carotid bifurcations. No evidence of intracranial high-grade stenosis or int racranial aneurysm. Echocardiogram reveals EF 50-55%. mild to moderately dilated left atrium, negative bubble study, no TR, no pericardial effusion. Brain MRI reveals acute CVA left frontal lobe, tiny focus within the splenium of the corpus callosum, additional tiny focus posterior right temporal lobe. TSH 1.710. Lipid panel WNL. Patient received IV ativan for the MRI and appears sedated, family requesting patient not receive ativan again. 06/14/2024 Patient is evaluated today in follow up sitting up in the chair. Continues with right sided weakness. Brain MRI positive. Is continued on aspirin and statin therapy. Currently pending an accepting rehab facility. Blood glucose getting more controlled down to 180-160s. Blood pressure also better controlled at 159/79. Had long discussion with patient and son at the bedside regarding cigarette smoking and tobacco vape cessation. Patient to be started on a nicotine patch taper. 06/15/2024 Patient evaluated today in follow up on the medical floor. Son at the bedside all questions were answered. Patient has been continued on nicotine patch secondary to increased cravings. Continues on aspirin 81 mg daily and plavix 75 mg daily. Neurology in to see the patient and felt right sided hemiparesis has been worsening. Patient is more awake and alert. Patient is tolerating diet. Sodium level 136, potassium 3.4, BUN 10, creatinine 0.41. 06/16/2024 Patient evaluated today in follow up. Continues with the right upper extremity weakness which does appear worse than yesterday. Brain CT reveals evolving left DRE infarct. Patient is reporting some LLQ abdominal discomfort rating it a 2/10 currently. She is nondistended with normoactive bowel sounds. Blood pressure up to 166/71 and may need to add back a small dose of metoprolol as heart rate is 106 currently. Sodium 135, potassium 3.7, BUN 16, creatinine 0.50. 06/17/2024 Patient is evaluated today in follow up. Family at the bedside. Patient has flat affect today. continues with the right hemiparesis. Family states she is complaining about left lower quad abdominal pain. Has not had a BM in 3 days. No urinary retention. Additionally, reported some sharp pain in her left leg; which is gone now. They are wondering if she has a DVT. Venous doppler is negative. Event monitor to be placed prior to DC. Pending approval for DC to [facility]. Goal for systolic BP 160-170. Continues on aspirin/plavix and lipitor. Review of Systems Constitutional: Denied any fatigue denied any fever. Cardio vascular: denied any chest pain, palpitations Gastrointestinal: denied any nausea, vomiting, diarrhea Pulmonary: Denied any shortness of breath cough Neurologic denied any new focal deficits; remains with right sided weakness. Reports swallowing difficulties which are improving All inpatient medications were reviewed and appropriate changes in these medications as dictated in the interval history and assessment and plan. PHYSICAL EXAMINATION: GENERAL: The patient is alert and oriented x1, not in any acute distress. Well developed, well nourished. Lethargic. HEENT: Pupils are round and equally reacting to light. EOMI. No scleral icterus. No conjunctival pallor. Normocephalic, atraumatic. No pharyngeal erythema. No thyromegaly. CARDIOVASCULAR: S1 and S2 present. No murmurs, rubs, or gallops. PULMONARY: Chest is clear to auscultation, no wheezing or crackles. ABDOMEN: Soft, nontender, nondistended, normoactive bowel sounds. No palpable organomegaly. MUSCULOSKELETAL: No joint swelling or deformity. EXTREMITIES: No cyanosis, clubbing, or pedal edema. NEUROLOGICAL: Right sided hemiparesis. Right facial droop. SKIN: No rashes. Assessment and plan - Fall secondary to generalized weakness patient does have peripheral neuropathy -LLQ abdominal pain under investigaion - Right sided hemiparesis due to acute ischemic stroke; evolving left DRE infarct. - Type 2 diabetes mellitus new onset; hgb a1c 12.3 - Hypertension new onset essential hypertension; uncontrolled - Diabetic neuropathy - Chronic nicotine use GI prophylaxis DVT prophylaxis: Subcu heparin Full Code Plan Continue aspirin 81 mg daily, plavix 75 mg daily, lipitor 40 mg HS. Neurology consultation PT/OT Speech therapy consultation D/C amlodipine, discontinue losartan . Continue to allow permissive hypertension with goal of systolic BP 170-190s. Lantus increased to 40 units HS Continue metformin and Linagliptin Continue accuchecks ACHS; sliding scale insulin and scheduled meal time insulin Add nicotine patch Currently pending accepting rehab facility and discharge planning Pending abdominal xray. The impression and plan of care has been dictated by Dai Knight, Nurse Practitioner as directed. Dr. Lai MD I have performed a history and physical examination and medical decision making of this patient, discussed the same with the dictator, and agree with the dictators assessment and plan as written, documented as a scribe. Based on total visit time, I have performed more than 50% of this visit. Objective - Vital Signs Vital signs: Vital Signs Temp 98.1 F 06/17/24 04:37 Pulse 100 06/17/24 14:00 Resp 18 06/17/24 08:49 BP 165/83 06/17/24 08:49 Pulse Ox 98 06/17/24 08:49 FiO2 Intake & Output 06/16/24 06/17/24 06/17/24 18:59 06:59 18:59 Intake Total 480 Output Total 800 1050 500 Balance -800 -1050 -20 Weight 97.5 kg Intake: Oral 480 Output: Urine 800 1050 500 Other: Voiding Method External Catheter External Catheter External Catheter # Voids 1 2 - Labs CBC & Chem 7: 06/17/24 06:12 06/17/24 06:12 Labs: Abnormal Lab Results - Last 24 Hours (Table) 06/16/24 06/16/24 06/17/24 Range/Units 16:49 19:41 05:44 Sodium (137-145) mmol/L Creatinine (0.52-1.04) mg/dL Glucose (74-99) mg/dL POC Glucose (mg/dL) 145 H 254 H 113 H (70-110) mg/dL 06/17/24 06/17/24 Range/Units 06:12 11:27 Sodium 136 L (137-145) mmol/L Creatinine 0.46 L (0.52-1.04) mg/dL Glucose 106 H (74-99) mg/dL POC Glucose (mg/dL) 132 H (70-110) mg/dL Assessment and Plan Time with Patient: Less than 30
--- NOTE | 2024-06-17 15:26 | XR ---
EXAMINATION TYPE: XR abdomen 2V DATE OF EXAM: 06/17/2024 COMPARISON: CT abdomen pelvis 06/10/2024 HISTORY: Abdominal pain TECHNIQUE: Upright and supine views of the abdomen were obtained. Supine KUB image of the abdomen is obtained FINDINGS: Small bowel demonstrates no evidence for dilatation or air fluid levels. Gas and fecal material is seen throughout the colon and rectum. No convincing evidence for pneumoperitoneum. No unusual calcifications. The lung bases are clear. The osseous structures are intact. Advanced osteoarthritic changes of the left hip with superior join t space narrowing and sclerosis with marginal osteophytosis. IMPRESSION: 1. Overall nonobstructive bowel gas pattern. 2. Moderate colonic stool burden. Correlate for constipation. [facility], , 06/17/2024 3:24 PM
[2024-06-17 16:09] LABS: Glucose,Whole Blood 147 mg/dL (70-110)
[2024-06-17 17:00] VITALS: RESP 16
[2024-06-17] MEDS: bisacodyL 10 MG SUPP RECTAL STA (18:39)
[2024-06-17] MEDS: LACTULOSE 20 GM/30 ML CUP PO ONE (18:39)
[2024-06-17 21:04] LABS: Glucose,Whole Blood 177 mg/dL (70-110)
[2024-06-18 06:19] LABS: Glucose,Whole Blood 93 mg/dL (70-110)
[2024-06-18 07:23] LABS: African American GFR (CKD) >90 (>60 ml/min/1.73 sqM); Anion Gap 8 mmol/L; Blood Urea Nitrogen 13 mg/dL (7-17); Calcium 9.1 mg/dL (8.4-10.2); Carbon Dioxide 25 mmol/L (22-30); Chloride 103 mmol/L (98-107); Glucose 93 mg/dL (74-99); Non-African American GFR(CKD) >90 (>60 ml/min/1.73 sqM); Sodium 136 mmol/L (137-145)
[2024-06-18] MEDS: LOSARTAN 25 MG TAB PO SCH (09:24)
[2024-06-18 11:16] LABS: Glucose,Whole Blood 172 mg/dL (70-110)
--- NOTE | 2024-06-18 13:36 | P.DS ---
Providers Date of admission: 06/10/24 21:26 Attending physician: Betsy Ashley Consults: 06/12/24 11:40 Consult Physician Routine Consulting Provider: Wyatt Ward Consult Reason/Comments: poss CVA Do you want consulting provider notified?: Yes Primary care physician: Stated None Hospital Course: Final Diagnosis - Fall secondary to generalized weakness patient does have peripheral neuropathy - Right sided hemiparesis due to acute ischemic stroke; evolving left DRE infarct. - Type 2 diabetes mellitus new onset; hgb a1c 12.3 - Hypertension new onset essential hypertension; uncontrolled - Diabetic neuropathy - Chronic nicotine use Discharge Disposition Patient is stable for discharge to subacute rehab. Patient to to continue aspirin and plavix as well as statin therapy. Continue lantus, humalog, tradjenta and metformin have been started. As blood sugar stabilizes may need to cut back on these medications. Continue PT/OT and speech therapy on discharge. Neurology is recommending blood pressure goal systolic 170s. Patient needs to establish care with family doctor on discharge and establish care with a neurologist. Hospital Course 63-year-old female came in after mechanical fall and family reporting new weakness and confusion ongoing for a few days. Patient underwent workup with CT abdomen pelvis hip CT pelvic and hip x-ray all of which did not show any significant abnormality. patient presently denies any abdominal pain patient is also found to have highly elevated blood sugars. Patient is not a known diabetic. Patient blood pressure is also elevated. Imaging did reveal severe degenerative changes in the hips. Nonobstructing renal calculi, colonic diverticulosis. And there is a incidental finding of left adrenal nodule. Patient was initially started on tradjenta and metformin with hemoglobin A1C found to be 12.5. There is concern for stroke as patient is displaying weakness more on her right side. Cognitively she appears to be altered. Family member at the bedside states that she has not been in to see a medical doctor for quite some time. Brain CTA reveals left frontal lobe area of suspected ischemia; no evidence of dissection of the cervical internal carotid arteries or vertebral arteries. No evidence of significant stenosis of the carotid bifurcations. No evidence of intracranial high-grade stenosis or intracranial aneurysm. Echocardiogram reveals EF 50-55%. mild to moderately dilated left atrium, negative bubble study, no TR, no pericardial effusion. Brain MRI reveals acute CVA left frontal lobe, tiny focus within the splenium of the corpus callosum, additional tiny focus posterior right temporal lobe. TSH 1.710. Lipid panel WNL. Patient has been started on aspirin, plavix and lipitor. Had worsening right weakness and repeat brain CT reveals left DRE evolving infarct. Patient was also started on sliding scale insulin; and also lantus HS. Patient also had echocardiogram done reveals EF 50-55% with mild to mod dilated left atrium, negative bubble study, no TR, no pericardial effusion. Patient had event monitor placed for discharge. Blood glucose improving. Sodium 135, potassium 3.8, BUN 10, creatinine 0.44. Awake alert and oriented with continued right hemiparesis noted. Diet per ST dysphagia level 3 chopped diet. 1:1 supervision. Please see medication reconciliation for a list of current medications. Thank you for allowing us to participate in the care of this patient. The impression and plan of care has been dictated by Dai Knight, Nurse Practitioner as directed. Dr. Lai MD I have performed a history and physical examination and medical decision making of this patient, discussed the same with the dictator, and agree with the dictators assessment and plan as written, documented as a scribe. Based on total visit time, I have performed more than 50% of this visit. Patient Condition at Discharge: Fair Plan - Discharge Summary New Discharge Prescriptions: New Aspirin 81 mg PO DAILY tab Nicotine 21Mg/24Hr Patch [Habitrol] 1 patch TRANSDERM DAILY patch Heparin Sodium,Porcine (1 ml) [Heparin Sodium] 5,000 unit SQ Q12HR each INSULIN LISPRO (HumaLOG) [HumaLOG] 4 unit SQ AC-TID each Insulin Glargine (Lantus) [Lantus Vial] 35 unit SQ HS each Melatonin 3 mg PO HS PRN tab PRN Reason: Insomnia Famotidine [Pepcid] 20 mg PO BID tab Clopidogrel [Plavix] 75 mg PO DAILY tab Linagliptin [Tradjenta] 5 mg PO DAILY tab Losartan [Cozaar] 25 mg PO DAILY tab metFORMIN HCL [Glucophage] 500 mg PO BID-W/MEALS tab Atorvastatin [Lipitor] 40 mg PO HS tab Acetaminophen Tab [Tylenol] 650 mg PO Q6HR PRN tab PRN Reason: Mild Pain Or Fever > 100.5 Discontinued Elderberry Gummies 2 tab PO HS Apple Cider Vinegar Gummies 2 tab PO HS Discharge Medication List Acetaminophen Tab [Tylenol] 650 mg PO Q6HR PRN tab 06/18/24 [Rx] Aspirin 81 mg PO DAILY tab 06/18/24 [Rx] Atorvastatin [Lipitor] 40 mg PO HS tab 06/18/24 [Rx] Clopidogrel [Plavix] 75 mg PO DAILY tab 06/18/24 [Rx] Famotidine [Pepcid] 20 mg PO BID tab 06/18/24 [Rx] Heparin Sodium,Porcine (1 ml) [Heparin Sodium] 5,000 unit SQ Q12HR each 06/18/24 [Rx] INSULIN LISPRO (HumaLOG) [HumaLOG] 4 unit SQ AC-TID each 06/18/24 [Rx] Insulin Glargine (Lantus) [Lantus Vial] 35 unit SQ HS each 06/18/24 [Rx] Linagliptin [Tradjenta] 5 mg PO DAILY tab 06/18/24 [Rx] Losartan [Cozaar] 25 mg PO DAILY tab 06/18/24 [Rx] Melatonin 3 mg PO HS PRN tab 06/18/24 [Rx] Nicotine 21Mg/24Hr Patch [Habitrol] 1 patch TRANSDERM DAILY patch 06/18/24 [Rx] metFORMIN HCL [Glucophage] 500 mg PO BID-W/MEALS tab 06/18/24 [Rx] Follow up Appointment(s)/Referral(s): None,Stated [Primary Care Provider] [facility] (Clinic for [facility] residents with no insurance or who are under insured. ) Sadi Ross DO [STAFF PHYSICIAN] - 1 Week (Neurology ) Activity/Diet/Wound Care/Special Instructions: Patient to establish care with a neurologist and family provider on discharge Discharge/Stand Alone Forms: Area PCPs Discharge Disposition: TRANSFER TO SNF/ECF
[2024-06-18 16:19] VITALS: BP 182/99; PULSE 95; TEMP 98.1
[2024-06-18 16:21] LABS: Glucose,Whole Blood 153 mg/dL (70-110)
--- NOTE | 2024-06-18 16:42 | P.PN ---
Subjective Progress Note Date: 06/18/24 I am seeing the patient for the first time during this hospital visit. Please refer to Dr. Ward's note for further details. It seems that the patient had subacute stroke over the left MCA DRE territory. She does not have any worsening of her neurological issues. Objective - Vital Signs Vital signs: Vital Signs Temp 98.1 F 06/18/24 15:11 Pulse 95 06/18/24 15:11 Resp 16 06/18/24 15:11 BP 182/99 06/18/24 15:11 Pulse Ox 97 06/18/24 15:11 FiO2 Intake & Output 06/17/24 06/18/24 06/18/24 18:59 06:59 18:59 Intake Total 600 357 Output Total 500 900 Balance 100 -543 Weight 97 kg Intake: Oral 600 357 Output: Urine 500 900 Other: Voiding Method External Catheter External Catheter External Catheter # Voids 1 # Bowel Movements 1 - Exam General: Lying in bed and is not in acute distress. Neuro: Patient is awake alert oriented to self, place she stated it is the end of May and they she correctly stated that month. She does have expressive aphasia. Is following simple commands. Patient has right lower facial weakness. No dysarthria. Motor: Strength over the left side is 5 out of 5. The right side has weakness and it is about 3 over the upper extremity. In the right lower extremity is about a 2. Decree sensation to touch over the right side - Labs CBC & Chem 7: 06/17/24 06:12 06/18/24 05:46 Labs: Abnormal Lab Results - Last 24 Hours (Table) 06/17/24 06/18/24 06/18/24 Range/Units 21:01 05:46 11:14 Sodium 136 L (137-145) mmol/L Creatinine 0.45 L (0.52-1.04) mg/dL POC Glucose (mg/dL) 177 H 172 H (70-110) mg/dL 06/18/24 Range/Units 16:17 Sodium (137-145) mmol/L Creatinine (0.52-1.04) mg/dL POC Glucose (mg/dL) 153 H (70-110) mg/dL Assessment and Plan Assessment: * 63-year-old female, with right leg weakness going on for weeks to months, seems to have got worse in the last couple weeks. Also has developed decreased dexterity and some weakness of the right arm. CT head revealed evidence of old left basal ganglial stroke (probable cause of "chronic" right leg weakness of few weeks to few months duration), and on my review also appears to have some possible subacute watershed type of ischemia between the left MCA/DRE territory (cause of recent worsening). * New onset diabetes * Hypertension * Hyperlipidemia * Chronic back pain * Vapes nicotine * No health maintenance for years Plan: * MRI of the brain revealed multifocal globular increased signal on diffusion- weighted imaging involving the left frontal lobe consistent with acute CVA immediately within the anterior cerebral artery territory. Tiny focus seen within the splenium of the corpus callosum. Additional tiny focus posterior right temporal lobe. No evidence of hemorrhagic conversion. I personally reviewed MRI, agree with the findings, except that I could not find the tiny focus posterior right temporal lobe lesion. * 2-D echo revealed LVEF 50 to 55%. No obvious regional wall motion abnormalities. Mild to moderately dilated left atrium. Negative bubble study for [id number] shunt. Moderately increased left atrial volume. No valvular abnormalities. * CTA of head and neck revealed no evidence of dissection of the cervical internal carotid arteries or vertebral arteries. No evidence of significant stenosis at the carotid bifurcations. No evidence of intracranial high-grade stenosis or intracranial aneurysm. * Repeat CT head 06/15/2024 revealed evolution of left DRE infarct without evidence for hemorrhagic conversion. I personally reviewed CT head, agree with the findings. No significant change from the MRI findings. * May start gradually controlling blood pressure to less than 140 systolic. * Fasting a.m. lipid panel cholesterol 186, LDL 112, HDL 49, triglycerides 122. Patient started on Lipitor 40 mg daily. * Hemoglobin A1c 12.5, consistent with new onset diabetes. Optimize control of diabetes to target A1c <7.0 * B12 514, folate 17.30 both normal * Patient was not taking any antiplatelet medication at home. Patient will be loaded with aspirin 324 mg, and Plavix 300 mg x 1 dose. She will be maintained on aspirin 81 mg and Plavix 75 mg. * Start Pepcid 20 mg twice daily. * Neuro checks every 2 hours Telemetry monitoring rule out any arrhythmia * PT, OT, speech therapy * Recommend complete tobacco cessation. * DVT prophylaxis: Heparin 5000 units subcu every 12 hours * Consider consultation with inpatient rehabilitation. * Upon discharge recommend the patient follow-up with a neurologist as an outpatient within 2 weeks. The plan discussed with the patient, her son is at bedside as well as the primary team nurse practitioner. Time with Patient: Less than 30
== END 2024-06-18 18:15 | DRG 65 ==
LOC: EC 18:36 → 3SCARD 21:26
PROVIDERS: ADMIT Hospitalist; ATTEND Hospitalist
DX: I63.522 Cerebral infarction due to unspecified occlusion or stenosis of left anterior cerebral artery (principal); G81.91 Hemiplegia, unspecified affecting right dominant side; E27.8 Other specified disorders of adrenal gland; R13.10 Dysphagia, unspecified; I16.0 Hypertensive urgency; E11.42 Type 2 diabetes mellitus with diabetic polyneuropathy; Z79.4 Long term (current) use of insulin; I10 Essential (primary) hypertension; E78.5 Hyperlipidemia, unspecified; E83.42 Hypomagnesemia; E87.6 Hypokalemia; F17.290 Nicotine dependence, other tobacco product, uncomplicated; G89.29 Other chronic pain; M54.9 Dorsalgia, unspecified; K57.30 Diverticulosis of large intestine without perforation or abscess without bleeding; M81.0 Age-related osteoporosis without current pathological fracture; N20.0 Calculus of kidney; W01.0XXA Fall on same level from slipping, tripping and stumbling without subsequent striking against object, initial encounter; W22.8XXA Striking against or struck by other objects, initial encounter; Z79.02 Long term (current) use of antithrombotics/antiplatelets; Z79.82 Long term (current) use of aspirin; Z86.73 Personal history of transient ischemic attack (TIA), and cerebral infarction without residual deficits; Z87.442 Personal history of urinary calculi; Z91.81 History of falling; Z79.84 Long term (current) use of oral hypoglycemic drugs
CPT/HCPCS: 36415; 70450; 70496; 70498; 70551; 71046; 73502; 74019; 74177; 80048; 80053; 80061; 81001; 82607; 82746; 82805; 83036; 83605; 83735; 83880; 84100; 84443; 84484; 85025; 85027; 85379; 85610; 85730; 93005; 93306; 96361; 96365; 96366; 96375; 99285

== ENCOUNTER → 2024-07-22 | Outpatient (CLI) | payer SELFPAY ==
--- NOTE | 2024-08-02 06:27 | HM ---
HOLTER MONITOR REPORT CLINICAL INFORMATION: Baseline rhythm is a sinus mechanism. The average rate 96 beats per minute, minimum 77, maximum 152 beats per minute. Ventricular ectopic activity was present in form of rare single PACs. Supraventricular ectopic activity was present in form of rare single PACs. No symptoms were reported. CONCLUSION: 1. Sinus mechanism baseline rhythm. 2. Rare ventricular ectopic activity. 3. Rare supraventricular ectopic activity. 4. No symptoms were reported. MMODL / IJN: [id number] /
== END | disposition home or self-care (01) ==
LOC: RADECHMAIN 08:15
PROVIDERS: ATTEND Family Medicine
DX: I63.322 Cerebral infarction due to thrombosis of left anterior cerebral artery (principal); I49.3 Ventricular premature depolarization
CPT/HCPCS: 93225

== ENCOUNTER 2024-08-05 18:18 | Emergency (ER) | payer OTHER ==
[2024-08-05 18:48] VITALS: PULSE 85
--- NOTE | 2024-08-05 20:28 | CT ---
EXAMINATION TYPE: CT hip LT wo con DATE OF EXAM: 08/05/2024 7:45 PM COMPARISON: 06/02/2024 CLINICAL INDICATION: Female, 63 years old with history of suspected impacted FNF, suspected impacted femoral neck fracture TECHNIQUE: Contrast used: mL of , (none if empty) Oral contrast used: (none if empty) Axial images at 2.5 mm thick sections. Reconstructed images in the coronal and sagittal planes. FINDINGS: Degenerative changes are present at the left hip. There is loss of the joint space. Femoral head spur ring is noted. No acute fractures are evident. No subacute fracture such as a femoral neck impaction is identified. There is a lucency with smooth cortical margins in the anterior acetabulum may be seco ndary ossification or an old fracture. This was present previously and is unchanged. IMPRESSION: 1. MODERATELY ADVANCED DEGENERATIVE CHANGES LEFT HIP. 2. NO ACUTE OSSEOUS ABNORMALITY RADIOGRAPHICALLY APPARENT [facility], , 08/05/2024 8:25 PM
--- NOTE | 2024-08-05 23:34 | ED ---
General Adult HPI - General Chief complaint: Extremity Injury, Lower Stated complaint: L Leg Injury Time Seen by Provider: 08/05/24 18:28 Source: patient, EMS Mode of arrival: EMS Limitations: no limitations - History of Present Illness Initial comments: This patient is a 63-year-old woman transferred here from shelter to have evaluation due to suspected hip fracture. The patient had been complaining of some pain in the lower left part of the abdomen/groin and it was reported that an x-ray was not diagnostic. When I evaluate the patient, she is not having pain into the leg. The patient does have history of stroke with left-sided residual. Onset/Timin -: days(s) Location: left, lower extremity Severity scale (1-10): 0 Consistency: intermittent Improves with: none Worsens with: none Associated Symptoms: denies other symptoms - Related Data Home Medications Medication Instructions Recorded Confirmed INSULIN LISPRO (HumaLOG) [HumaLOG] 4 unit SQ AC-TID@07,11,17 06/27/24 06/27/24 Magic Cup 1 can PO BID-W/MEALS 06/27/24 06/27/24 Sennosides [Senokot] 8.6 mg PO BID 06/27/24 06/27/24 amLODIPine [Norvasc] 2.5 mg PO HS 06/27/24 06/27/24 metFORMIN HCL [Glucophage] 500 mg PO BID@0800,2000 06/27/24 06/27/24 Previous Rx's Medication Instructions Recorded Acetaminophen Tab [Tylenol] 650 mg PO Q6HR PRN tab 06/18/24 Aspirin 81 mg PO DAILY tab 06/18/24 Atorvastatin [Lipitor] 40 mg PO HS tab 06/18/24 Clopidogrel [Plavix] 75 mg PO DAILY tab 06/18/24 Famotidine [Pepcid] 20 mg PO BID tab 06/18/24 Insulin Glargine (Lantus) [Lantus 35 unit SQ HS each 06/18/24 Vial] Linagliptin [Tradjenta] 5 mg PO DAILY tab 06/18/24 Melatonin 3 mg PO HS PRN tab 06/18/24 Nicotine 21Mg/24Hr Patch [Habitrol] 1 patch TRANSDERM DAILY patch 06/18/24 Cephalexin [Keflex] 500 mg PO Q8HR 3 Days #9 cap 07/01/24 Docusate [Colace] 100 mg PO BID PRN #30 cap 07/01/24 Losartan [Cozaar] 50 mg PO BID #60 tab 07/01/24 Allergies Allergy/AdvReac Type Severity Reaction Status Date / Time lorazepam [From Ativan] AdvReac Confusion Verified 06/27/24 12:32 Review of Systems ROS Statement: Those systems with pertinent positive or pertinent negative responses have been documented in the HPI. ROS Other: All systems not noted in ROS Statement are negative. Constitutional: Reports: weakness. Denies: fever Respiratory: Denies: cough, dyspnea Cardiovascular: Denies: chest pain, palpitations Gastrointestinal: Denies: abdominal pain, vomiting Musculoskeletal: Reports: as per HPI Skin: Denies: rash Neurological: Denies: headache Past Medical History Past Medical History: CVA/TIA, Diabetes Mellitus Additional Past Medical History / Comment(s): kidney stones, cva JANUARY 2024 WITH LEFT SIDE DEFICITS. End may stroke with right sided deficit History of Any Multi-Drug Resistant Organisms: None Reported Past Surgical History: Back Surgery, Section Additional Past Surgical History / Comment(s): ruptured disc Past Anesthesia/Blood Transfusion Reactions: No Reported Reaction Past Psychological History: No Psychological Hx Reported Smoking Status: Former smoker Past Alcohol Use History: None Reported Past Drug Use History: None Reported General Exam Limitations: no limitations General appearance: alert, in no apparent distress Head exam: Present: atraumatic, normocephalic Eye exam: Present: normal appearance. Absent: scleral icterus, conjunctival injection Neck exam: Present: normal inspection Respiratory exam: Present: normal lung sounds bilaterally. Absent: respiratory distress, wheezes, rales, rhonchi, stridor Cardiovascular Exam: Present: regular rate, normal rhythm, normal heart sounds. Absent: systolic murmur, diastolic murmur, rubs, gallop GI/Abdominal exam: Present: soft. Absent: distended, tenderness, guarding, rebound, rigid Extremities exam: Present: normal inspection, tenderness, normal capillary refill. Absent: full ROM, pedal edema Back exam: Present: normal inspection. Absent: CVA tenderness (R), CVA tenderness (L) Neurological exam: Present: alert Skin exam: Present: warm, dry, intact, normal color. Absent: rash Course Vital Signs 06/23/25 06/24/25 18:33 01:30 Temperature 98.1 F 98.3 F Pulse Rate 85 Respiratory 20 93 H Rate Blood Pressure 136/64 138/75 O2 Sat by Pulse 100 96 Oximetry Medical Decision Making - Medical Decision Making Was pt. sent in by a medical professional or institution ([facility], [employer], urgent care, hospital, or shelter...) When possible be specific @ -[Yes, patient sent from shelter to have further evaluation of intermittent left groin/hip pains with nondiagnostic x-rays Did you speak to anyone other than the patient for history (EMS, parent, family, police, friend...)? What history was obtained from this source @ -[No] Did you review nursing and triage notes (agree or disagree)? Why? @ -[I reviewed and agree with nursing and triage notes] Were old charts reviewed (outside hosp., previous admission, EMS record, old EKG, old radiological studies, urgent care reports/EKG's, shelter records)? Report findings @ -[The transfer records were reviewed] Differential Diagnosis (chest pain, altered mental status, abdominal pain women, abdominal pain men, vaginal bleeding, weakness, fever, dyspnea, syncope, headache, dizziness, GI bleed, back pain, seizure, CVA, palpatations, mental health, musculoskeletal)? @ -Differential Musculoskeletal Muscular strain, contusion, ligament sprain, fracture, arthritis, septic arthritis, bursitis, cellulitis, muscle spasm, nerve compression, DVT, arterial occlusion, herpes zoster, electrolyte abnormality, tumor.... This is not meant to be in all inclusive list EKG interpreted by me (3pts min.). @ -[As above] X-rays interpreted by me (1pt min.). @ -[None done] CT interpreted by me (1pt min.). @ -[As above U/S interpreted by me (1pt. min.). @ -[None done] What testing was considered but not performed or refused? (CT, X-rays, U/S, labs)? Why? @ -[None] What meds were considered but not given or refused? Why? @ -[None] Did you discuss the management of the patient with other professionals (professionals i.e. [facility]es, HONING JOB SETTER, lab, RT, psych nurse, social insurance specialist, key account coordinator, teacher, engineering officer, case packer)? Give summary @ -[No] Was smoking cessation discussed for >3mins.? @ -[No] Was critical care preformed (if so, how long)? @ -[No] Were there social determinants of health that impacted care today? How? (Homelessness, low income, unemployed, alcoholism, drug addiction, transportation, low edu. Level, literacy, decrease access to med. care, half-way, rehab)? @ -[No] Was there de-escalation of care discussed even if they declined (Discuss DNR or withdrawal of care, Hospice)? DNR status @ -[No] What co-morbidities impacted this encounter? (DM, HTN, Smoking, COPD, CAD, Cancer, CVA, ARF, Chemo, Hep., AIDS, mental health diagnosis, sleep apnea, morbid obesity)? @ -[History of previous stroke with left residual Was patient admitted / discharged? Hospital course, mention meds given and route, prescriptions, significant lab abnormalities, going to OR and other pertinent info. @ -[Patient is 63-year-old woman here to have further evaluation related to intermittent left hip pains, CT scan today does not reveal fracture but there is significant constipation. The patient had enema here with large amount of stool. At this point stable to have discharge back to long-term care facility Undiagnosed new problem with uncertain prognosis? @ -[No] Drug Therapy requiring intensive monitoring for toxicity (Heparin, Nitro, Insulin, Cardizem)? @ -[No] Were any procedures done? @ -[No] Diagnosis/symptom? @ -[Acute constipation Chronic left hip pain Acute, or Chronic, or Acute on Chronic? @ -[default] Uncomplicated (without systemic symptoms) or Complicated (systemic symptoms)? @ -[Uncomplicated Side effects of treatment? @ -[No] Exacerbation, Progression, or Severe Exacerbation? @ -[No] Poses a threat to life or bodily function? How? (Chest pain, [place], [place], pneumonia, PE, COPD, DKA, ARF, appy, cholecystitis, CVA, Diverticulitis, Homicidal, Suicidal, threat to staff... and all critical care pts) @ -[No] All treatments are based on ideal body weight as in ED triage Disposition Clinical Impression: Hip pain, Constipation Disposition: HOME SELF-CARE Condition: Good Instructions (If sedation given, give patient instructions): Constipation (ED) Is patient prescribed a controlled substance at d/c from ED?: No Referrals: Tylor Levin DO [Primary Care Provider] - 1-2 days
[2024-08-06 01:36] VITALS: BP 138/75; RESP 93; TEMP 98.3
== END 2024-08-06 01:32 | disposition home or self-care (01) ==
LOC: EC 18:18
DX: G89.29 Other chronic pain (principal); M25.552 Pain in left hip; K59.00 Constipation, unspecified; Z88.8 Allergy status to other drugs, medicaments and biological substances; Z87.891 Personal history of nicotine dependence; Z86.73 Personal history of transient ischemic attack (TIA), and cerebral infarction without residual deficits
CPT/HCPCS: 99284